=== PATIENT | female | born 1955 | race Hispanic/Latino ===

== ENCOUNTER 2017-09-14 11:18 | Emergency (ER) | payer BC ==
[2017-09-14] MEDS ORDERED: ALBUTEROL 2.5 MG/3 ML NEB SOL ONE ×2 (13:21→15:32)
[2017-09-14] MEDS ORDERED: IPRATROPIUM BROM 0.5MG/2.5ML ONE ×2 (13:22→15:32)
--- NOTE | 2017-09-14 14:48 | RAD REPORT ---
EXAM DESCRIPTION: RAD - Chest Pa And Lat (2 Views) - 09/14/2017 2:34 pm CLINICAL HISTORY: Cough and congestion COMPARISON: May 2010 TECHNIQUE: PA and lateral views of the chest were obtained. FINDINGS: The lungs are normal volume. Patient has an underlying chronic interstitial lung pattern. This is not substantially different from the prior study when adjusting for technique differences. No focal mass or consolidation. No failure finding. Heart size is normal and central vasculature is within normal limits. No pleural effusion or pneumot horax seen. No acute bone finding. Moderate thoracolumbar scoliotic curvature present. No aortic abn ormality. IMPRESSION: Chronic interstitial lung disease not substantially different from comparison. No acute findings seen.
[2017-09-14 15:19] LABS: Urine Blood 1+ (NEG); Urine Glucose NEGATIVE (NEG); Urine Protein NEGATIVE (NEG); Urine Specific Gravity 1.015 (1.005-1.030); Urine pH 5.5 (5.0-7.0)
--- NOTE | 2017-09-14 15:23 | ER ---
Nurse's Notes [facility] Name: Alaina Hernandez Age: 61 yrs Sex: Female : 1955 Arrival Date: 09/14/2017 Time: 11:37 Bed 17 Private MD: Diagnosis: Bronchitis, not specified as acute or chronic Presentation: 09/14 11:42 Presenting complaint: Patient states: headache, cough, congestion x 8 days. Denies ss fever. Transition of care: patient was not received from another setting of care. Onset of symptoms was September 06, 2017. Care prior to arrival: None. 11:42 Method Of Arrival: Ambulatory ss 11:42 Acuity: GABRIELLE 3 ss Historical: - Allergies: 11:43 Aspirin; ss 11:43 Iodine; ss 11:43 shrimp, peanuts,; ss - PMHx: 11:43 GERD; prolapsed uterus; ss - PSHx: 11:43 Cholecystectomy; lipoma removed from neck; ss - Immunization history:: Flu vaccine is not up to date. - Social history:: Smoking status: Patient/guardian denies using tobacco. Screenin:00 Abuse screen: Denies threats or abuse. Nutritional screening: No deficits noted. em Tuberculosis screening: No symptoms or risk factors identified. Fall Risk None identified. Assessment: 13:00 General: Appears in no apparent distress. uncomfortable, Behavior is calm, cooperative. em General: Reports chills for 2-3 days, fever for 2-3 days. Pain: Denies pain. Neuro: Level of Consciousness is awake, alert, obeys commands, Oriented to person, place, time, situation, Reports headache after coughing. Cardiovascular: Denies chest pain, Heart tones S1 S2 present Capillary refill < 3 seconds. Respiratory: Reports pain with cough pain with respiration Airway is patent Respiratory effort is even, unlabored, Respiratory pattern is regular, symmetrical, Sputum is green Breath sounds with wheezes in left posterior upper lobe, right posterior upper lobe, left posterior lower lobe and right posterior lower lobe Onset: The symptoms/episode began/occurred 8 days ago. GI: Abdomen is round non-distended. : Reports urinary frequency, since 8 days ago. EENT: No signs and/or symptoms were reported regarding the EENT system. Derm: Skin is intact, Skin is pink, warm \\T\\ dry. Musculoskeletal: Range of motion: intact in all extremities. 13:30 General: The previous assessment is accurate, call light remains within reach. . ss 14:00 Reassessment: Patient appears in no apparent distress at this time. Patient and/or em family updated on plan of care and expected duration. Pain level reassessed. Patient is alert, oriented x 3, equal unlabored respirations, skin warm/dry/pink. 14:20 Respiratory: Reports pain with cough Breath sounds with wheezes in left posterior lower em lobe and right posterior lower lobe. 15:10 Reassessment: Patient appears in no apparent distress at this time. Patient and/or em family updated on plan of care and expected duration. Pain level reassessed. Patient is alert, oriented x 3, equal unlabored respirations, skin warm/dry/pink. pt c/o headache after coughing, states, "I feel like my head is going to pop." RAUL Huggins notified, new orders received. 15:55 Reassessment: Patient and/or family updated on plan of care and expected duration. Pain em level reassessed. Patient is alert, oriented x 3, equal unlabored respirations, skin warm/dry/pink. Patient states feeling better. Patient states symptoms have improved. Vital Signs: 11:43 BP 135 / 77; Pulse 72; Resp 16; Temp 98.5(O); Pulse Ox 98% on R/A; Weight 63.5 kg; ss Height 5 ft. 2 in. (157.48 cm); Pain 0/10; 13:00 BP 144 / 79; Pulse 81; Resp 16; Pulse Ox 100% on R/A; Pain 0/10; em 13:50 BP 133 / 70; Pulse 90; Resp 18; Pulse Ox 100% on R/A; em 15:10 BP 127 / 83; Pulse 80; Resp 20; Pulse Ox 99% on R/A; Pain 4/10; em 15:55 BP 145 / 82; Pulse 81; Resp 18; Pulse Ox 99% on R/A; Pain 0/10; em 11:43 Body Mass Index 25.61 (63.50 kg, 157.48 cm) ED Course: 11:37 Patient arrived in ED. as 11:43 Triage completed. ss 11:43 Arm band placed on right wrist. ss 12:47 Bhavna Estrada, NATHALIA-C is PHCP. kb 12:47 Anand oTdd MD is Attending Physician. kb 13:00 Patient has correct armband on for positive identification. Bed in low position. Side em rails up X2. 13:00 No provider procedures requiring assistance completed. em 13:01 Hussein Cooney LVN is Primary Nurse. em 14:32 Chest Pa And Lat (2 Views) XRAY In Process Unspecified. EDMS 16:03 Patient did not have IV access during this emergency room visit. em Administered Medications: 13:10 Drug: DuoNeb (3:1) (2.5 mg - 0.5 mg) 3 ml Route: Nebulizer; em 13:50 Follow up: Response: No adverse reaction; Wheezing diminished em 15:19 Drug: DuoNeb (3:1) (2.5 mg - 0.5 mg) 3 ml Route: Nebulizer; em 15:55 Follow up: Response: No adverse reaction em 15:19 Drug: Tylenol 1000 mg Route: PO; em 15:55 Follow up: Response: No adverse reaction em Outcome: 15:22 Discharge ordered by MD. kb 16:02 Discharged to home ambulatory. em 16:02 Condition: good 16:02 Discharge instructions given to patient, Instructed on discharge instructions, follow up and referral plans. medication usage, Demonstrated understanding of instructions, follow-up care, medications, Prescriptions given X 2. 16:05 Patient left the ED. em Signatures: Dispatcher [employer] EDSC Bhavna Estrada, SALT CUTTER-C SALT CUTTER-Hussein Jensen LVN LVN em Raquel Rizzo Shelby, RN RN ss Corrections: (The following items were deleted from the chart) 13:22 13:00 Neuro: Level of Consciousness is awake, alert, obeys commands, Oriented to em person, place, time, situation, em 15:21 13:00 Respiratory: Airway is patent Respiratory effort is even, unlabored, Respiratory em pattern is regular, symmetrical, Sputum is green Onset: The symptoms/episode began/occurred 8 days ago, em
--- NOTE | 2017-09-14 15:23 | EDPHYS ---
Physician Documentation [facility] Name: Alaina Hernandez Age: 61 yrs Sex: Female : 1955 Arrival Date: 09/14/2017 Time: 11:37 Bed 17 Private MD: ED Physician Anand Todd HPI: 09/14 13:36 This 61 yrs old Female presents to ER via Ambulatory with complaints of kb Headache, Fever, Ear Pain. 13:36 The patient or guardian reports cough, that is intermittent, described as moderate, kb with no sputum. Onset: The symptoms/episode began/occurred 8 day(s) ago. Severity of symptoms: At their worst the symptoms were moderate, in the emergency department the symptoms are unchanged. Modifying factors: The symptoms are alleviated by nothing, the symptoms are aggravated by nothing. Associated signs and symptoms: Pertinent positives: earache, rhinorrhea, congestion. The patient has not experienced similar symptoms in the past. The patient has not recently seen a physician. Historical: - Allergies: 11:43 Aspirin; ss 11:43 Iodine; ss 11:43 shrimp, peanuts,; ss - PMHx: 11:43 GERD; prolapsed uterus; ss - PSHx: 11:43 Cholecystectomy; lipoma removed from neck; ss - Immunization history:: Flu vaccine is not up to date. - Social history:: Smoking status: Patient/guardian denies using tobacco. ROS: 13:36 Constitutional: Negative for fever, chills, and weight loss, Cardiovascular: Negative kb for chest pain, palpitations, and edema, Abdomen/GI: Negative for abdominal pain, nausea, vomiting, diarrhea, and constipation, Back: Negative for injury and pain, : Negative for injury, bleeding, discharge, and swelling, MS/Extremity: Negative for injury and deformity, Skin: Negative for injury, rash, and discoloration, Neuro: Negative for headache, weakness, numbness, tingling, and seizure. 13:36 ENT: Positive for rhinorrhea, sinus congestion. 13:36 Respiratory: Positive for cough, Negative for dyspnea on exertion, hemoptysis, orthopnea, pleurisy, shortness of breath, sputum production, wheezing. Exam: 13:36 Constitutional: This is a well developed, well nourished patient who is awake, alert, kb and in no acute distress. Head/Face: Normocephalic, atraumatic. Neck: Trachea midline, no thyromegaly or masses palpated, and no cervical lymphadenopathy. Supple, full range of motion without nuchal rigidity, or vertebral point tenderness. No Meningismus. Chest/axilla: Normal chest wall appearance and motion. Nontender with no deformity. No lesions are appreciated. Cardiovascular: Regular rate and rhythm with a normal S1 and S2. No gallops, murmurs, or rubs. Normal PMI, no JVD. No pulse deficits. Abdomen/GI: Soft, non-tender, with normal bowel sounds. No distension or tympany. No guarding or rebound. No evidence of tenderness throughout. Skin: Warm, dry with normal turgor. Normal color with no rashes, no lesions, and no evidence of cellulitis. MS/ Extremity: Pulses equal, no cyanosis. Neurovascular intact. Full, normal range of motion. Neuro: Awake and alert, GCS 15, oriented to person, place, time, and situation. Cranial nerves II-XII grossly intact. Motor strength 5/5 in all extremities. Sensory grossly intact. Cerebellar exam normal. Normal gait. 13:36 Respiratory: the patient does not display signs of respiratory distress, Respirations: normal, Breath sounds: rhonchi, that are moderate, are scattered, wheezing: expiratory that is moderate, is heard diffusely. 15:23 Respiratory: the patient does not display signs of respiratory distress, Respirations: kb normal, Breath sounds: are clear throughout. Vital Signs: 11:43 BP 135 / 77; Pulse 72; Resp 16; Temp 98.5(O); Pulse Ox 98% on R/A; Weight 63.5 kg; ss Height 5 ft. 2 in. (157.48 cm); Pain 0/10; 13:00 BP 144 / 79; Pulse 81; Resp 16; Pulse Ox 100% on R/A; Pain 0/10; em 13:50 BP 133 / 70; Pulse 90; Resp 18; Pulse Ox 100% on R/A; em 15:10 BP 127 / 83; Pulse 80; Resp 20; Pulse Ox 99% on R/A; Pain 4/10; em 15:55 BP 145 / 82; Pulse 81; Resp 18; Pulse Ox 99% on R/A; Pain 0/10; em 11:43 Body Mass Index 25.61 (63.50 kg, 157.48 cm) ss MDM: 12:47 Patient medically screened. kb 13:36 Data reviewed: vital signs, nurses notes. Data interpreted: Pulse oximetry: on room air kb is 100 %. Interpretation: normal. Counseling: I had a detailed discussion with the patient and/or guardian regarding: the historical points, exam findings, and any diagnostic results supporting the discharge/admit diagnosis, lab results, radiology results, the need for outpatient follow up, a family practitioner, to return to the emergency department if symptoms worsen or persist or if there are any questions or concerns that arise at home. 09/14 12:53 Order name: Flu; Complete Time: 13:47 kb 09/14 14:53 Order name: Urine Dipstick--Ancillary (enter results); Complete Time: 15:22 bd 09/14 12:53 Order name: Chest Pa And Lat (2 Views) XRAY; Complete Time: 14:52 kb 09/14 14:53 Order name: Urine --Ancillary (enter results); Complete Time: 15:22 bd Administered Medications: 13:10 Drug: DuoNeb (3:1) (2.5 mg - 0.5 mg) 3 ml Route: Nebulizer; em 13:50 Follow up: Response: No adverse reaction; Wheezing diminished em 15:19 Drug: DuoNeb (3:1) (2.5 mg - 0.5 mg) 3 ml Route: Nebulizer; em 15:55 Follow up: Response: No adverse reaction em 15:19 Drug: Tylenol 1000 mg Route: PO; em 15:55 Follow up: Response: No adverse reaction em Disposition: 09/14/17 15:22 Discharged to Home. Impression: Bronchitis, not specified as acute or chronic. - Condition is Stable. - Discharge Instructions: Acute Bronchitis, [id number]. - Prescriptions for Tessalon Perles 100 mg Oral Capsule - take 1 capsule by ORAL route every 8 hours As needed; 15 capsule. Albuterol Sulfate 90 mcg/actuation - inhale 1-2 puff by INHALATION route every 4-6 hours; 1 Inhaler. - Medication Reconciliation Form, Thank You Letter, Antibiotic Education, Prescription Opioid Use form. - Follow up: Emergency Department; When: As needed; Reason: Worsening of condition. Follow up: Private Physician; When: 2 - 3 days; Reason: Recheck today's complaints, Continuance of care, Re-evaluation by your physician. Addendum: 09/16/2017 06:14 Co-signature as Attending Physician, Anand Todd MD. g s Signatures: Dispatcher [employer] Bhavna Diaz, SOLE TRIMMER-C SOLE TRIMMER-Ckb Hussein Cooney, RETAIL SOLAR ADVISOR RETAIL SOLAR ADVISOR Luanne Navarro, Anand Kunz RN, MD MD
[2017-09-14] MEDS ORDERED: ACETAMINOPHEN 500 MG TAB ONE (15:32)
== END 2017-09-14 16:05 | disposition home or self-care (01) ==
LOC: ER 11:18
DX: J40 Bronchitis, not specified as acute or chronic (principal); Z88.8 Allergy status to other drugs, medicaments and biological substances; Z88.6 Allergy status to analgesic agent; Z91.010 Allergy to peanuts; Z91.013 Allergy to seafood
CPT/HCPCS: 71046; 81003; 81025; 87804; 94640; 99284

== ENCOUNTER 2022-12-16 09:26 | Emergency (ER) | payer OTHER ==
--- OUTSIDE RECORDS SUMMARY | 2022-12-16 09:31 | XMS REPORT | Continuity of Care Document ---
:1955 Author Organization [facility] t Address [address] [place] [address] [place] [id number] Care Team Providers Name Role Phone MEGAN_Sarwat Attending Clinician Unavailable Ev Phillips Attending Clinician Unavailable Ev Phillips Attending Clinician [phone] Della Ritchie RN Attending Clinician Unavailable Jeannette Cardoza Attending Clinician JEANNETTE ROBLES Attending Clinician Unavailable Doctor Unassigned, [place] Attending Clinician Unavailable Ciara Pederson MD Attending Clinician Thierry Garcia MD Attending Clinician MEGAN_Sarwat Admitting Clinician Unavailable Ev Phillips Admitting Clinician Unavailable Payers Payer Name Policy Type Policy Number Effective Date Expiration Date Cyril llanos [place] [id number] [place] - [place] (MEDICARE REPLACEMENT/ADVANTA GE - HMO) [employer] (MEDICARE [id number] REPLACEMENT HMO) [facility] [employer] [id number] INSURANCE [employer] [facility] [id number] 2020 00:00:00 Problems Condition Condition Condition Status Onset Resolution Last Treating Co mments Source Name Details Category Date Date Treatment Clinician Date Body mass Body Mass Problem Active Khalida via index 30+ Index 30+ 3-25 Medi verenice - obesity - Obesity 00:00: 00 Prolapse Prolapse Problem Active [facility] of female of Female [facility] genital Genital organs Organs Atrophic Atrophic Problem Active [facility] vaginitis Vaginitis [facility] Urinary Urinary Problem Active [facility] incontinen Incontinen Me dical ce ce No known No known Disease Unive rs active active ity of problems problems [facility] Allergies, Adverse Reactions, Alerts Allergy Allergy Status Severity Reaction(s) Onset Inactive Treating Comm ents Source Name Type Date Date Clinician iodine DA Active U ANAPHALAXIS 2021-06 [facility] [place] aspirin DA Active U ANAPHYLAXIS 2021-06 [facility] [place] IODINE DRUG Active Anaphylaxis Unive rs INGREDI 2-05 ity of 00:00: [place] 00 [facility] Iodine Propensi Active Anaphylaxis Uni vers ty to 2-05 ity of adverse 00:00: [place] reaction 00 Medical s Branch ANIMAL DRUG Active Swelling 2017-06 Univers DANDER INGREDI 0-28 ity of 00:00: [place] 00 [facility] ASPIRIN DRUG Active Swelling 2017-06 Univers INGREDI 0-28 ity of 00:00: [place] 00 [facility] CHICKEN DRUG Active Anaphylaxis 2017-06 Univ ers DERIVED INGREDI 0-28 ity of 00:00: [place] 00 [facility] DEONDRE DRUG Active Anaphylaxis 2017-06 Unive rs INGREDI 0-28 ity of 00:00: [place] 00 [facility] PEANUT DRUG Active Anaphylaxis 2017-06 Unive rs INGREDI 0-28 ity of 00:00: [place] 00 [facility] SHELLFIS DRUG Active Anaphylaxis 2017-06 Uni vers H INGREDI 0-28 ity of DERIVED 00:00: [place] 00 [facility] Animal Propensi Active Swelling 2017-06 Univer s Dander ty to 0-28 ity of adverse 00:00: [place] reaction 00 Medical s Branch Aspirin Propensi Active Swelling 2017-06 Unive rs ty to 0-28 ity of adverse 00:00: [place] reaction 00 Medical s Branch Chicken Propensi Active Anaphylaxis 2017-06 Un tara Derived ty to 0-28 ity of adverse 00:00: [place] reaction 00 Medical s Branch Deondre Propensi Active Anaphylaxis 2017-06 Uni vers ty to 0-28 ity of adverse 00:00: [place] reaction 00 Medical s Branch Peanut Propensi Active Anaphylaxis 2017-06 Uni vers ty to 0-28 ity of adverse 00:00: [place] reaction Medical s Branch Shellfis Propensi Active Anaphylaxis 2017-06 U nivers h ty to 0-28 ity of Derived adverse 00:00: [place] reaction 00 Medical s Branch iodine DA Active U UNKNOWN [facility] 14 Woman's 00:00: [facility] [place] aspirin DA Active U UNKNOWN [facility] 14 [facility] 00:00: [facility] [place] Tylenol- Allergy Active [place] [facility] codeine to Medical #3 substanc e Aspirin Allergy Active Angioedema [facility] to Medical substanc e Social History Social Habit Start Date Stop Date Quantity Comments Source Exposure to SARS-CoV-2 Not sure [facility] [place] [facility]igned At [facility] Smoking Status Start Date Stop Date Source Never Smoker [facility] Medications Ordered Filled Start Stop Current Ordering Indication Dosage Frequency Signature Comments Components Source Medication Medication Date Date Medication? Clinician (SIG) Name Name butalbital- 2019-06 2020- No 1{tbl} 1 tablet, [facility] acetaminoph 0-18 10-18 Oral, ONCE i ty of en-caff 19:45: 18:40 NOW, 1 [place] (ESGIC) 00 :00 dose, [facility] 50-325-40 04/05/20 Branch mg tablet 1 at 1445, tablet ABHILASH dexamethaso 2019-06 2020- No 10mg 10 mg, IV Univers ne 0-18 10-18 Push, ity of (DECADRON 18:00: 17:15 ONCE, 1 [place] PHOSPHATE) 00 :00 dose, [place] [facility] verenice injection 04/05/20 Branch 10 mg at 1300, STAT metoclopram 2019-06 2020- No 10mg 10 mg, Uni vers ming HCl 0-18 10-18 Slow IV ity of (REGLAN) 18:00: 17:14 Push, [place] injection 00 :00 ONCE, 1 Medical 10 mg dose, [place] [facility] 04/05/20 at 1300, ABHILASH ketorolac 2019-06 2020- No 30mg 30 mg, Unive rs (TORADOL) 0-18 10-18 Slow IV ity of injection 18:00: 17:15 Push, [place] 30 mg 00 :00 ONCE, 1 Medical dose, [facility] 04/05/20 at 1300, ABHILASH
[facility] member approving Restricted medication : JEANNETTE ROBLES meclizine 2019-06- No 50mg 50 mg, Unive rs (TRAVEL-EAS 0-18 10-18 Oral, ity of E 18:00: 17:14 ONCE, 1 [place] (MECLIZINE) 00 :00 dose, [facility] ical ) tablet 50 04/05/20 Bran ch mg at 1300, ABHILASH NaCl 0.9% 2019-06- No 1000mL at 999 Uni vers (NS) bolus 0-18 10-18 mL/hr, ity of infusion 17:00: 18:58 1,000 mL, Adalberto as 1,000 mL 00 :00 IV Medical Infusion, Branch ONCE, 1 dose, 04/05/20 at 1200, ABHILASH butalbital- 2019-06 Yes [id number] 1{tbl} Take 1 Univers acetaminoph 0-18 tablet by ity of en-caff 00:00: mouth [place] 50-325-40 00 every 6 Medical mg tablet (six) Branch hours as needed for Pain (scale 7-10). butalbital- 2019-06 Yes [id number] 1{tbl} Take 1 Univers acetaminoph 0-18 tablet by ity of en-caff 00:00: mouth [place] 50-325-40 00 every 6 Medical mg tablet (six) Branch hours as needed for Pain (scale 7-10). Nitrofurant 2019-06- No [id number] 100mg Take 1 Univers oin&Nit. 0-18 10-26 capsule by ity of Macrocryst 00:00: 04:59 mouth 2 Adalberto as 100 mg 00 :00 (two) Medical capsule times Branch daily for 7 days. Nitrofurant 2019-06 2020- No [id number] 100mg Take 1 Univers oin&Nit. 0-18 10-26 capsule by ity of Macrocryst 00:00: 04:59 mouth 2 Adalberto as 100 mg 00 :00 (two) Medical capsule times Branch daily for 7 days. ketorolac 2019- No 30mg 30 mg, Unive rs (TORADOL) 2-06 02-06 Slow IV ity of injection 02:15: 01:14 Push, [place] 30 mg 00 :00 ONCE, 1 Medical dose, Wed Branch 07/24/19 at 2015, ABHILASH
[facility] member approving Restricted medication : CIARA PEDERSON LORazepam 2020-0 Yes 1mg Take 1 mg Uni vers (ATIVAN) 1 2-06 by mouth ity o f mg tablet 01:50: at [place] bedtime. Medical Branch ciprofloxac 2020-0 Yes 500mg Take 500 U nivers in HCl 500 2-06 mg by ity of mg tablet 01:50: mouth [place] daily. Medical Branch LORazepam 2020-0 Yes 1mg Take 1 mg Uni vers (ATIVAN) 1 2-06 by mouth ity o f mg tablet 01:50: at [place] bedtime. Medical Branch ciprofloxac 2020-0 Yes 500mg Take 500 U nivers in HCl 500 2-06 mg by ity of mg tablet 01:50: mouth daily. Medical Branch LORazepam 2020-0 Yes 1mg Take 1 mg Uni vers (ATIVAN) 1 2-06 by mouth ity o f mg tablet 01:50: at [place] bedtime. Medical Branch ciprofloxac 2020-0 Yes 500mg Take 500 U nivers in HCl 500 2-06 mg by ity of mg tablet 01:50: mouth daily. Medical Branch LORazepam 2020-0 Yes 1mg Take 1 mg Uni vers (ATIVAN) 1 2-06 by mouth ity o f mg tablet 01:50: at [place] 09 bedtime. Medical Branch ciprofloxac 2020-0 Yes 500mg Take 500 U nivers in HCl 500 2-06 mg by ity of mg tablet 01:50: mouth [place] 09 daily. Medical Branch butalbital- 2020-0 Yes [id number] 1{tbl} Take 1 Univers acetaminoph 2-05 tablet by ity of en-caff 00:00: mouth [place] 50-325-40 00 every 4 Medical mg tablet (four) Branch hours as needed (headache) . busPIRone 2020-0 Yes [id number] 10mg Take 1 Un tara 10 mg 2-05 tablet by ity of tablet 00:00: mouth 2 [place] 00 (two) Medical times Branch daily. butalbital- 2020-0 Yes [id number] 1{tbl} Take 1 Univers acetaminoph 2-05 tablet by ity of en-caff 00:00: mouth [place] 50-325-40 00 every 4 Medical mg tablet (four) Branch hours as needed (headache) . busPIRone 2020-0 Yes [id number] 10mg Take 1 Un tara 10 mg 2-05 tablet by ity of tablet 00:00: mouth 2 [place] 00 (two) Medical times Branch daily. butalbital- 2020-0 Yes [id number] 1{tbl} Take 1 Univers acetaminoph 2-05 tablet by ity of en-caff 00:00: mouth [place] 50-325-40 00 every 4 Medical mg tablet (four) Branch hours as needed (headache) . busPIRone 2020-0 Yes [id number] 10mg Take 1 Un tara 10 mg 2-05 tablet by ity of tablet 00:00: mouth 2 [place] 00 (two) Medical times Branch daily. butalbital- 2020-0 Yes [id number] 1{tbl} Take 1 Univers acetaminoph 2-05 tablet by ity of en-caff 00:00: mouth [place] 50-325-40 00 every 4 Medical mg tablet (four) Branch hours as needed (headache) . busPIRone 2020-0 Yes [id number] 10mg Take 1 Un tara 10 mg 2-05 tablet by ity of tablet 00:00: mouth 2 [place] 00 (two) Medical times Branch daily. hyoscyamine 2017- Yes .125mg Take 1 Un tara 0.125 mg 0-28 tablet by ity of tablet 00:00: mouth [place] 00 every 4 Medical (four) Branch hours as needed for Pain (scale 7-10). ondansetron 2017- Yes 4mg Take 1 Univ ers 4 mg tablet 0-28 tablet by ity of 00:00: mouth [place] 00 every 8 Medical (eight) Branch hours as needed for Nausea and Vomiting (N/V). hyoscyamine 2018- Yes .125mg Take 1 Un tara 0.125 mg 0-28 tablet by ity of tablet 00:00: mouth [place] 00 every 4 Medical (four) Branch hours as needed for Pain (scale 7-10). ondansetron 2017- Yes 4mg Take 1 Univ ers 4 mg tablet 0-28 tablet by ity of 00:00: mouth [place] 00 every 8 Medical (eight) Branch hours as needed for Nausea and Vomiting (N/V). hyoscyamine 2017- Yes .125mg Take 1 Un tara 0.125 mg 0-28 tablet by ity of tablet 00:00: mouth [place] 00 every 4 Medical (four) Branch hours as needed for Pain (scale 7-10). ondansetron 2017-06 Yes 4mg Take 1 Univ ers 4 mg tablet 0-28 tablet by ity of 00:00: mouth [place] 00 every 8 Medical (eight) Branch hours as needed for Nausea and Vomiting (N/V). hyoscyamine 2017-06 Yes .125mg Take 1 Un tara 0.125 mg 0-28 tablet by ity of tablet 00:00: mouth [place] 00 every 4 Medical (four) Branch hours as needed for Pain (scale 7-10). ondansetron 2017-06 Yes 4mg Take 1 Univ ers 4 mg tablet 0-28 tablet by ity of 00:00: mouth [place] 00 every 8 Medical (eight) Branch hours as needed for Nausea and Vomiting (N/V). hyoscyamine 2017-06 Yes .125mg Take 1 Un tara 0.125 mg 0-28 tablet by ity of tablet 00:00: mouth [place] 00 every 4 Medical (four) Branch hours as needed for Pain (scale 7-10). ondansetron 2017-06 Yes 4mg Take 1 Univ ers 4 mg tablet 0-28 tablet by ity of 00:00: mouth [place] 00 every 8 Medical (eight) Branch hours as needed for Nausea and Vomiting (N/V). estradiol estradiol No estradiol [facility] 0.01% (0.1 0.01% (0.1 0.01% (0.1 Medical mg/gram) mg/gram) mg/gram) vaginal vaginal vaginal cream 1 g cream 1 g cream 1 g per vagina per vagina per vagina nightly for nightly for nightly 2 weeks, 2 weeks, for 2 then 1 g then 1 g weeks, per vagina per vagina then 1 g at bedtime at bedtime per vagina twice twice at bedtime weekly weekly twice weekly lorazepam 2 lorazepam 2 No lorazepam [facility] mg tablet mg tablet 2 mg Medic al TAKE 1 TAKE 1 tablet TABLET BY TABLET BY TAKE 1 MOUTH EVERY MOUTH EVERY TABLET BY DAY DAY MOUTH NEEDED FOR NEEDED FOR EVERY DAY ANXIETY ANXIETY NEEDED FOR ANXIETY nitrofurant nitrofurant No nitrofuran [facility] oin oin toin Medical monohydrate monohydrate monohydrat /macrocryst /macrocryst e/macrocry als 100 mg als 100 mg stals 100 capsule capsule mg capsule Take 1 Take 1 Take 1 capsule(s) capsule(s) capsule(s) after each after each after each visit visit visit propranolol propranolol No propranolo [facility] 10 mg 10 mg l 10 mg Medical tablet TAKE tablet TAKE tablet 1 TABLET BY 1 TABLET BY TAKE 1 MOUTH TWICE MOUTH TWICE TABLET BY DAILY DAILY MOUTH TWICE DAILY acetaminoph acetaminoph No acetaminop [facility] en 300 en 300 hen 300 Medical mg-codeine mg-codeine mg-codeine 30 mg 30 mg 30 mg tablet TAKE tablet TAKE tablet 1 TABLET BY 1 TABLET BY TAKE 1 MOUTH EVERY MOUTH EVERY TABLET BY 4 HOURS 4 HOURS MOUTH NEEDED NEEDED EVERY 4 HOURS NEEDED estradiol estradiol No estradiol [facility] 0.01% (0.1 0.01% (0.1 0.01% (0.1 Medical mg/gram) mg/gram) mg/gram) vaginal vaginal vaginal cream 1 g cream 1 g cream 1 g per vagina per vagina per vagina nightly for nightly for nightly 2 weeks, 2 weeks, for 2 then 1 g then 1 g weeks, per vagina per vagina then 1 g at bedtime at bedtime per vagina twice twice at bedtime weekly weekly twice weekly lorazepam 2 lorazepam 2 No lorazepam [facility] mg tablet mg tablet 2 mg Medic al TAKE 1 TAKE 1 tablet TABLET BY TABLET BY TAKE 1 MOUTH EVERY MOUTH EVERY TABLET BY DAY DAY MOUTH NEEDED FOR NEEDED FOR EVERY DAY ANXIETY ANXIETY NEEDED FOR ANXIETY propranolol propranolol No propranolo [facility] 10 mg 10 mg l 10 mg Medical tablet TAKE tablet TAKE tablet 1 TABLET BY 1 TABLET BY TAKE 1 MOUTH TWICE MOUTH TWICE TABLET BY DAILY DAILY MOUTH TWICE DAILY estradiol estradiol No estradiol [facility] 0.01% (0.1 0.01% (0.1 0.01% (0.1 Medical mg/gram) mg/gram) mg/gram) vaginal vaginal vaginal cream 1 g cream 1 g cream 1 g per vagina per vagina per vagina nightly for nightly for nightly 2 weeks, 2 weeks, for 2 then 1 g then 1 g weeks, per vagina per vagina then 1 g at bedtime at bedtime per vagina twice twice at bedtime weekly weekly twice weekly ketorolac ketorolac No ketorolac [facility] 10 mg 10 mg 10 mg Medical tablet TAKE tablet TAKE tablet 1 TABLET BY 1 TABLET BY TAKE 1 MOUTH THREE MOUTH THREE TABLET BY TIMES DAILY TIMES DAILY MOUTH NEEDED NEEDED THREE FOR PAIN FOR PAIN TIMES DAILY NEEDED FOR PAIN lorazepam 2 lorazepam 2 No lorazepam [facility] mg tablet mg tablet 2 mg Medic al TAKE 1 TAKE 1 tablet TABLET BY TABLET BY TAKE 1 MOUTH EVERY MOUTH EVERY TABLET BY DAY DAY MOUTH NEEDED FOR NEEDED FOR EVERY DAY ANXIETY ANXIETY NEEDED FOR ANXIETY mometasone mometasone No mometasone [facility] 0.1 % 0.1 % 0.1 % Medical topical topical topical ointment ointment ointment APPLY TO APPLY TO APPLY TO AFFECTED AFFECTED AFFECTED RIGHT EYE RIGHT EYE RIGHT EYE LID EVERY LID EVERY LID EVERY NIGHT AT NIGHT AT NIGHT AT BEDTIME FOR BEDTIME FOR BEDTIME 10 DAYS 10 DAYS FOR 10 DAYS prednisone prednisone No prednisone [facility] 20 mg 20 mg 20 mg Medical tablet TAKE tablet TAKE tablet 3 TABLETS 3 TABLETS TAKE 3 BY MOUTH BY MOUTH TABLETS BY EVERY DAY EVERY DAY MOUTH FOR 3 DAYS FOR 3 DAYS EVERY DAY THEN TAKE 2 THEN TAKE 2 FOR 3 DAYS TABLETS BY TABLETS BY THEN TAKE MOUTH EVERY MOUTH EVERY 2 TABLETS DAY FOR 3 DAY FOR 3 BY MOUTH DAYS THEN DAYS THEN EVERY DAY TAKE 1 TAKE 1 FOR 3 DAYS TABLET BY TABLET BY THEN TAKE MOUTH EVERY MOUTH EVERY 1 TABLET DAY FOR 3 DAY FOR 3 BY MOUTH DAYS DAYS EVERY DAY FOR 3 DAYS propranolol propranolol No propranolo [facility] 10 mg 10 mg l 10 mg Medical tablet TAKE tablet TAKE tablet 1 TABLET BY 1 TABLET BY TAKE 1 MOUTH TWICE MOUTH TWICE TABLET BY DAILY DAILY MOUTH TWICE DAILY estradiol estradiol No estradiol [facility] 0.01% (0.1 0.01% (0.1 0.01% (0.1 Medical mg/gram) mg/gram) mg/gram) vaginal vaginal vaginal cream 1 g cream 1 g cream 1 g per vagina per vagina per vagina nightly for nightly for nightly 2 weeks, 2 weeks, for 2 then 1 g then 1 g weeks, per vagina per vagina then 1 g at bedtime at bedtime per vagina twice twice at bedtime weekly weekly twice weekly lorazepam 2 lorazepam 2 No lorazepam [facility] mg tablet mg tablet 2 mg Medic al TAKE 1 TAKE 1 tablet TABLET BY TABLET BY TAKE 1 MOUTH EVERY MOUTH EVERY TABLET BY DAY DAY MOUTH NEEDED FOR NEEDED FOR EVERY DAY ANXIETY ANXIETY NEEDED FOR ANXIETY propranolol propranolol No propranolo [facility] 10 mg 10 mg l 10 mg Medical tablet TAKE tablet TAKE tablet 1 TABLET BY 1 TABLET BY TAKE 1 MOUTH TWICE MOUTH TWICE TABLET BY DAILY DAILY MOUTH TWICE DAILY acetaminoph acetaminoph No acetaminop [facility] en 300 en 300 hen 300 Medical mg-codeine mg-codeine mg-codeine 30 mg 30 mg 30 mg tablet TAKE tablet TAKE tablet 1 TABLET BY 1 TABLET BY TAKE 1 MOUTH EVERY MOUTH EVERY TABLET BY 4 HOURS 4 HOURS MOUTH NEEDED NEEDED EVERY 4 HOURS NEEDED estradiol estradiol No estradiol [facility] 0.01% (0.1 0.01% (0.1 0.01% (0.1 Medical mg/gram) mg/gram) mg/gram) vaginal vaginal vaginal cream 1 g cream 1 g cream 1 g per vagina per vagina per vagina nightly for nightly for nightly 2 weeks, 2 weeks, for 2 then 1 g then 1 g weeks, per vagina per vagina then 1 g at bedtime at bedtime per vagina twice twice at bedtime weekly weekly twice weekly lorazepam 2 lorazepam 2 No lorazepam [facility] mg tablet mg tablet 2 mg Medic al TAKE 1 TAKE 1 tablet TABLET BY TABLET BY TAKE 1 MOUTH EVERY MOUTH EVERY TABLET BY DAY DAY MOUTH NEEDED FOR NEEDED FOR EVERY DAY ANXIETY ANXIETY NEEDED FOR ANXIETY propranolol propranolol No propranolo [facility] 10 mg 10 mg l 10 mg Medical tablet TAKE tablet TAKE tablet 1 TABLET BY 1 TABLET BY TAKE 1 MOUTH TWICE MOUTH TWICE TABLET BY DAILY DAILY MOUTH TWICE DAILY Vital Signs Vital Name Observation Time Observation Value Comments Source BP Diastolic 2022-05-24 00:00:00 80 mm[Hg] [facility] Height 2022-05-24 00:00:00 62 [in_i] [facility] BMI (Body Mass 2022-05-24 00:00:00 24.1 kg/m2 [facility] Medical Index) BP Systolic 2022-05-24 00:00:00 119 mm[Hg] [facility] Body Weight 2022-05-24 00:00:00 132 [lb_av] [facility] Height 2022-04-11 00:00:00 62 [in_i] [facility] BMI (Body Mass 2022-04-11 00:00:00 24.1 kg/m2 [facility] Index) BP Systolic 2022-04-11 00:00:00 136 mm[Hg] [facility] Body Weight 2022-04-11 00:00:00 132 [lb_av] [facility] BP Diastolic 2022-04-11 00:00:00 77 mm[Hg] [facility] BP Diastolic 2022-03-22 00:00:00 78 mm[Hg] [facility] Height 2022-03-22 00:00:00 62 [in_i] [facility] BP Systolic 2022-03-22 00:00:00 135 mm[Hg] [facility] BP Diastolic 2022-03-11 00:00:00 82 mm[Hg] [facility] Height 2022-03-11 00:00:00 62 [in_i] [facility] BMI (Body Mass 2022-03-11 00:00:00 25.1 kg/m2 [facility] Medical Index) BP Systolic 2022-03-11 00:00:00 148 mm[Hg] [facility] Body Weight 2022-03-11 00:00:00 137 [lb_av] [facility] BP Diastolic 2021-09-10 00:00:00 68 mm[Hg] [facility] Height 2021-09-10 00:00:00 62 [in_i] [facility] BMI (Body Mass 2021-09-10 00:00:00 33.8 kg/m2 [facility] Medical Index) BP Systolic 2021-09-10 00:00:00 135 mm[Hg] [facility] Body Weight 2021-09-10 00:00:00 185 [lb_av] [facility] Systolic blood 2020-04-05 18:42:01 134 mm[Hg] Univer sity of pressure [facility] Diastolic blood 2020-04-05 18:42:01 69 mm[Hg] Unive rsity of pressure [facility] Heart rate 2020-04-05 18:42:01 78 /min Universi of [facility] Respiratory rate 2020-04-05 18:42:01 16 /[facility] Oxygen saturation in 2020-04-05 18:42:01 99 /min [facility] Arterial blood by [facility] Pulse oximetry Branch Body temperature 2020-04-05 16:29:17 36.61 [facility] [place] [facility] Body weight 2020-04-05 16:27:00 63.504 kg [facility] [place] [facility] BMI 2020-04-05 16:27:00 25.61 kg/m2 [facility] [place] [facility] Body height 2020-04-05 16:27:00 157.5 cm [facility] [place] [facility] Systolic blood 2020-04-05 18:42:01 134 mm[Hg] Univer sity of pressure [place] [facility] Diastolic blood 2020-04-05 18:42:01 69 mm[Hg] Unive rsity of pressure [place] [facility] Heart rate 2020-04-05 18:42:01 78 /min [facility] [place] [facility] Respiratory rate 2020-04-05 18:42:01 16 /min [facility] ers[facility] [place] [facility] Oxygen saturation in 2020-04-05 18:42:01 99 /min University of Arterial blood by [facility] Pulse oximetry Branch Body temperature 2020-04-05 16:29:17 36.61 [facility] [place] [facility] Body weight 2020-04-05 16:27:00 63.504 kg [facility] [place] [facility] BMI 2020-04-05 16:27:00 25.61 kg/m2 [facility] [place] [facility] Body height 2020-04-05 16:27:00 157.5 cm [facility] [place] [facility] Systolic blood 2019-07-25 01:00:00 122 mm[Hg] Univer sity of pressure [place] [facility] Diastolic blood 2019-07-25 01:00:00 71 mm[Hg] Unive rsity of pressure [place] [facility] Heart rate 2019-07-25 01:00:00 69 /min [facility] [place] [facility] Respiratory rate 2019-07-25 01:00:00 18 /min Univ [facility] [place] [facility] Oxygen saturation in 2019-07-25 01:00:00 96 /min University of Arterial blood by [facility] Pulse oximetry Branch Body temperature 2019-07-24 23:12:47 36.83 [facility] [place] [facility] Body height 2019-07-24 23:08:05 157.5 cm [facility] [place] [facility] Body weight 2019-07-24 23:08:05 63.05 kg [facility] BMI 2019-07-24 23:08:05 25.42 kg/m2 [facility] Systolic blood 2019-07-25 01:00:00 122 mm[Hg] Univer sity of pressure [facility] Diastolic blood 2019-07-25 01:00:00 71 mm[Hg] [facility] Heart rate 2019-07-25 01:00:00 69 /min [facility] Respiratory rate 2019-07-25 01:00:00 18 /min [facility] Oxygen saturation in 2019-07-25 01:00:00 96 /min [facility] Arterial blood by [facility] Pulse oximetry [place] Body temperature 2019-07-24 23:12:47 36.83 [facility] Body height 2019-07-24 23:08:05 157.5 cm [facility] Body weight 2019-07-24 23:08:05 63.05 kg [facility] BMI 2019-07-24 23:08:05 25.42 kg/m2 [facility] Procedures Procedure Date / Time Performing Clinician Source Performed Hysterectomy - Laparoscopy 2022-03-29 00:00:00 [facility] MAMMO, diagnostic, 2022-03-11 00:00:00 [facility] digital, bilateral US, transvaginal 2021-09-10 00:00:00 [facility] 2020-04-05 17:06[facility] 2020-04-05 17:06:00 Jeannette Robles [facility] ([id number]) (ALB,T.PRO,[facility] T,BU/BC,ALT,AST,ALK PHOS) BASIC METABOLIC PANEL (NA, 2020-04-05 17:06:00 [facility] K, CL, CO2, GLUCOSE, BUN, Medica l Branch CREATININE, CA) CBC WITH DIFF 2020-04-05 17:06:00 [facility] 2020-04-05 17:06:00 [facility] N-TERMINAL PRO-BNP 2020-04-05 17:06:00 Jeannette Robles [facility] EKG-12 LEAD 2020-04-05 16:48:42 Tabby Roblesanne [facility] NOTICE OF PRIVACY 2020-04-05 16:10:46 Doctor Unassigned, [facility] PRACTICES [facility] [place] CONSENT/REFUSAL FOR 2020-04-05 16:10:33 Doctor Adam, [facility] DIAGNOSIS AND TREATMENT [facility] [place] URINALYSIS 2019-07-25 01:02:00 Lia [facility] XR CHEST 2 VW 2019-07-25 00:37:[address] [facility] [address] ABDOMEN PELVIS WO 2019-07-25 00:32:34 Lia [place] [facility] CONTRAST [facility] LIPASE 2019-07-24 23:41:00 Lia [facility] TROPONIN I 2019-07-24 23:41:00 Lia [facility] HEPATIC FUNCTION PANEL 2019-07-24 23:41:[address] [facility] ([id number]) (ALB,T.PRO,BILI [facility] T,BU/BC,ALT,AST,ALK PHOS) BASIC METABOLIC PANEL (NA, 2019-07-24 23:41:00 [facility] [facility] K, CL, CO2, GLUCOSE, BUN, Medica l Branch CREATININE, CA) CBC WITH DIFFERENTIAL 2019-07-24 23:41:00 Ciara Pederson [facility] PROTHROMBIN TIME / INR 2019-07-24 23:41:00 Ciara Pederson [facility] ACTIVATED PARTIAL THRMPLAS 2019-07-24 23:41:00 Ciara Pederson [facility] JORDYN [facility] EKG-12 LEAD 2019-07-24 23:19:38 Lia [facility] NOTICE OF PRIVACY 2019-07-24 22:41:07 Doctor Thaisssigned, [facility] PRACTICES [facility] [place] CONSENT/REFUSAL FOR 2019-07-24 22:37:24 Doctor Adam, [facility] DI[facility] 1997-06-19 00:00:00 [facility] Chole[facility] 1981-06-19 00:00:00 [facility] Plan of Care Planned Activity Planned Date Details Comments Source Diagnostic Test 2022-05-24 00:00:00 culture, urine [code [facility] Pending = culture, urine] Diagnostic Test 2022-05-24 00:00:00 urinalysis, complete [facility] Pending [code = urinalysis, complete] Encounters Start End Encounter Admission Attending Care Care Encounter Source Date/Time Date/Time Type Type Clinicians Facility Department ID 2022-12-14 2022-12-14 Outpatient [facility] PRIV PRIV 527 3045-20 [facility] 00:00:00 00:00:00 _Cathey [id number] Medica l 2022-09-14 2022-09-14 Outpatient [facility] PRIV PRIV 527 3045-20 [facility] 00:00:00 00:00:00 _Cathey [id number] Medica l 2022-09-14 2022-09-14 Outpatient [facility] PRIV PRIV 527 3045-20 [facility] 00:00:00 00:00:00 _Cathey [id number] Medica l 2022-08-03 2022-08-03 Outpatient [facility] PRIV PRIV 527 3045-20 [facility] 00:00:00 00:00:00 _Cathey [id number] Medica l 2022-05-24 2022-05-24 Outpatient [facility] PRIV PRIV 527 3045-20 [facility] 00:00:00 00:00:00 _Cathey [id number] Medica l 2022-05-24 2022-05-24 [facility] [id number] [facility] 00:00:00 00:00:00 RAUL Can: [facility] - Ms dicjemma 7900 GC_HAWMAC Jose Roberto, _Jose Roberto [address], [place] [address] , Ph. [phone] 2022-05-23 2022-05-23 Outpatient [facility] PRIV PRIV 527 3045-20 [facility] 00:00:00 00:00:00 _Cathey [id number] Medica l 2022-04-26 2022-04-26 Outpatient [facility] PRIV PRIV 527 3045-20 [facility] 00:00:00 00:00:00 _Cathey [id number] Medica l 2022-04-11 2022-04-11 Outpatient [facility] PRIV PRIV 527 3045-20 [facility] 00:00:00 00:00:00 _Cathey [id number] Medica l 2022-04-11 2022-04-11 Ev [facility]00 [facility]00[facility]arn[facility] MD: Stephie _Jose Roberto Cid, Office* [address], [place] [address] , Ph. [phone] 2022-03-29 2022-03-30 Inpatient HARPER Phillips, [facility] MEDI.01 [id number] [facility] 07:32:00 11:42:00 Ev 39 [facility] 2022-03-22 2022-03-22 Outpatient [facility] PRIV PRIV 527 3045-20 [facility] 00:00:00 00:00:00 _Cathey [id number] Medica l 2022-03-22 2022-03-22 Ev [facility] 00:00:00 00:00:00 Rosalinda [facility] RYAN Parnell MD: Stephie _Jose Roberto [address], Office* [address], [place] [address] , Ph. [phone] 2022-03-21 2022-03-21 Outpatient [facility] PRIV PRIV 527 3045-20 [facility] 00:00:00 00:00:00 _Cathey [id number] Medica l 2022-03-17 2022-03-17 Outpatient [facility] PRIV PRIV 527 3045-20 [facility] 00:00:00 00:00:00 _Cathey [id number] Medica l 2022-03-11 2022-03-11 Outpatient [facility] PRIV PRIV 527 3045-20 [facility] 00:00:00 00:00:00 _Cathey [id number] Medica l 2022-03-11 2022-03-11 Ev [facility]:00[facility]00 00:00:00 [facility] YOLETTE ParnellPRJerald : [address], Office* [address], [place] [address] , Ph. [phone] 2022-03-09 2022-03-09 Outpatient [facility] PRIV PRIV 527 3045-20 [facility] 00:00:00 00:00:00 _Cathey [id number] Medica l 2022-02-02 2022-02-02 Outpatient [facility] PRIV PRIV 527 3045-20 [facility] 00:00:00 00:00:00 _Cathey [id number] Medica l 2022-01-12 2022-01-12 Outpatient [facility] PRIV PRIV 527 3045-20 [facility] 00:00:00 00:00:00 _Cathey [id number] Medica l 2021-12-16 2021-12-16 Outpatient [facility] PRIV PRIV 527 3045-20 [facility] 01:06:00 01:06:00 _Cathey [id number] Medica l 2021-11-16 2021-11-16 Outpatient [facility] PRIV PRIV 527 3045-20 [facility] 01:08:00 01:08:00 _Cathey [id number] Medica l 2021-10-07 2021-10-07 Outpatient [facility] PRIV PRIV 527 3045-20 [facility] 03:51:00 03:51:00 _Cathey [id number] Medica l 2021-09-14 2021-09-14 Outpatient [facility] PRIV PRIV 527 3045-20 [facility] 10:33:00 10:33:00 _Cathey [id number] Medica l 2021-09-10 2021-09-10 Outpatient [facility] PRIV PRIV 527 3045-20 [facility] 12:17:00 12:17:00 _Cathey [id number] Medica l 2021-09-10 2021-09-10 Ev [facility] 00:00:00 00:00:00 [facility] - Medic jemma Phillips GC_[facility] : [address] _Jose Roberto Cid, Office* [address], [place] [address] , Ph. [phone] 2021-09-102021-09-10 Outpatient Jacqueline, PRIV PRIV [id number] c-a 00:00:00 00:00:00 Ev [id number] Rosalinda [id number] 2021-09-09 2021-09-09 Outpatient _[facility] PRIV PRIV 527 3045-20 [facility] 12:00:00 12:00:00 _Cathey [id number] Medica l 2021-09-08 2021-09-08 Outpatient _[facility] PRIV PRIV 527 3045-20 [facility] 04:32:00 04:32:00 _Cathey [id number] Medica l 2020-04-06 2020-04-06 Letter ADAN Ritchie 1.2.840.114 [id number] Univers 00:00:00 00:00:00 (Out) Della PUENTE 350.1.13.10 it [facility] 4.2.7.2.686 [facility] [phone] [address] 2020-04-06 2020-04-06 Letter ADAN Ritchie 1.2.840.114 [id number] 00:00:00 00:00:00 (Out) Della PUENTE 350.1.13.10 [place] [address]..2.[facility] [phone] [facility] 2020-04-05 2020-04-05 Emergency Robles, [facility] 1.2.840.114 [id number] Univers 11:30:00 14:08:00 Jeannette Corona 350.1.13.10 i ty [facility] 4.2.7.2.686 [facility] [id number] [address] 2020-04-05 2020-04-05 Emergency Robles, [facility] 1.2.840.114 [id number] 11:30:00 14:08:00 Jeannette Corona 350.1.13.10 [place] [address] [place] [address] [phone] [facility] 2020-04-05 2020-04-05 Emergency X ROBLES, [facility] ERT [id number] Univers 11:12:00 11:12:00 JEANNETTE guevara [facility] 2020-04-05 2020-04-05 Jose Maria ARELLANO 1.2.840.114 [id number] Univers 00:00:00 00:00:00 Only Unassigned, CINDI 350.1.13.10 [facility] 4.2.7.2.686 Adalberto as [phone] [address] 2020-04-05 2020-04-05 Orders Doctor ARELLANO Stephanie.2.840.114 [id number] 00:00:00 00:00:00 Only Unassigned, CINDI 350.1.13.10 [facility] [id number] [facility] 2019-07-24 2019-07-24 Emergency Ciara Pederson [facility] 1.2.84 0.114 [id number] [facility] 16:59:05 19:53:00 Thierry Garcia 350.1.13.10 ity of [place] 4.2.7.2.686 [facility] [phone] [address] 2019-07-24 2019-07-24 Emergency Ciara Pederson [facility] 1.2.84 0.114 [id number] 16:59:05 19:53:00 Thierry Garcia 350.1.13.10 [place] 4.2.7.2.686 [place] [id number] [facility] 2019-07-24 2019-07-24 Orders Doctor ARELLANO 1.2.840.114 [id number] Univers 00:00:00 00:00:00 Only Unassigned, CINDI 350.1.13.10 [facility] 4.2.7.2.686 Adalberto as [phone] [address] 2019-07-24 2019-07-24 Orders Doctor ARELLANO 1.2.840.114 [id number] 00:00:00 00:00:00 Only Unassigned, CINDI 350.1.13.10 [facility] 4.2.7.2.686 [id number] 009 2017-11-25 2017-11-25 Outpatient [facility] PRIV 527 3045-20 [facility] 04:38:00 04:38:00 _Jacqueline [id number] Elly deleon 2017-11-25 2017-11-25 Outpatient [facility] PRIV 527 3045-20 [facility] 04:38:00 04:38:00 _Jacqueline [id number] Medica l Results Test Description Test Time Test Comments Results Result Comments Source SURGICAL 2022-04-01 16:13:00 Test Item Value Reference Range Interpretation Garima patricio SURGICAL RUN DATE: (test 04/01/22 [facility] PAGE 1 RUN TIME: 1613 Specimen Inquiry RUN USER: INTERFACE code = PATIENT: SR) ERNIE HERNANDEZ LOC: [place] U #: [id number] AGE/SX: 66/F ROOM: [facility] RE03/29/22[facility] DR: Bart Phillips MD : 57 BED: A DIS: 03/30/22 STATUS: DIS Celia TLOC: SPEC #: [id number] RECD: [id number] STATUS: BRAVO RERaj #: [id number] MATTEO: 03/29/22-[address] [facility] [address]: Ev Phillips MD ENTERED: 03/29/22 SP TYPE: SURGICAL OTHR DR: DOES_NOT KNOW Self ReferredORDERED: ANATOMIC SP EC/2, SPEC TRACK, 00768, 48822, 63057 COPIES TO: DOES_NOT KNOW Self Referred Ev Phillips MD [address] [address] [email or web address] PROCEDURES: 76925 (04/01/221126) 36684 (03/29/22) 74472 (04/01/22) TISSUES: A. UTERUS W/WO TUBES OVARIES NON NEOPLASTIC /PROLAPSE - UTERUS, CERVIX, BILATERAL FALLOPIAN TUBES, BILATERAL OVARIES B. SKIN OF BREAST - SKIN TAGS B ILATERAL BREASTS FINAL DIAGNOSIS A. UTERUS CERVIX BILATERAL TUBES AND OVARIES, HYSTERECTOMY AND BI LATERAL SALPINGOOOPHORECTOMY: -Uterus, 61 grams. - Inactive endometrium. 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 -Unremarkable myometrium. -Cervix with squamous metaplasia, and mild chronic inflammation. -Immunohistochemistry is performed after morphologic review of selected block of cervix including p16 which is negative, supporting the above diagnosis. -Fallopian tubes, bilateral, with parat ubal cyst. -Atrophic ovaries, bilateral, right with serous cystadenoma. -Negative for malignancy. B. SKIN TAGS, BREAST, EXCISION: -Consistent with fibroepithelial polyp/ skin tag, 3 fragments. -Negative for malignancy dysplasia. CONTINUED ON NEXT PAGE RUN DATE: 04/01/22 [facility] PAGE 2 RUN TIME: 1613 Specimen Inquiry RUN USER: INTERFACE SPEC #: [id number] PATIENT: ERNIE HERNANDEZ #[id number] (Continued) GROSS DESCRIPTION Specimen r eceived in formalin in 2 parts each labeled with patient's name, MRN, and date ofbirth.A. Specimen is labeled uterus, cervix, bilateral fallopian tubes, bilateral ovaries. Itconsists of a hysterectomy specimen with bilateral adnexa weighing in aggregate 61 g. Uterus measures 7.1 cm in length from fundus to distal most portion of exocervix, 3.9 cmin maximum cornu to cornu width and 2.3 cm anteroposteriorly . Serosa is lagunas-brown smooth. Cervix is 2.7 cm in length and 2.6 cm in greatest diameter. Os is sli t-like and 0.8 cmacross. Portio vaginalis is purple lagunas smooth. Cervical canal has lagunas rugated appear ance. Endometrial cavity is 3.7 cm in length and 1.3 cm in maximum width. Endometrium is tansmooth and 0.1 cm in thickness. Myometrium is lagunas- pink to lagunas-ruelas and up to 1.3 cm inthickness. Right fallopian tube with fimbria is 4.7 cm in length and 0.5 cm in diameter. Serosa is lagunas-brown smooth. It has an attached soft lagunas thin walled cyst which is alsoadherent to ovarian surface. Cyst measures 1.7 x 1.6 cm i n maximum dimensions andcontains clear fluid. Right ovary is lagunas-yellow correlated firm and measures 2.5 x 1.4 x0.9 cm in maximum dimensions. Cut surface is lagunas-yellow. Left fallopian tube with fimbriai s 3.9 cm in length and 0.5 cm in diameter. Serosa is lagunas-brown smooth. It has anattached soft lagunas thin walled paratubal cyst measuring 0.8 cm in greatest dimension. Cystis filled with clear fluid. Sectioning of fallopian tube revealed partially patent lumen. Left ovary is pale yellow cannulated firm measu ring 1.9 x 1.7 x 0.9 cm in maximumdimensions. Cut surface is lagunas-ruelas. Urology Physician Assistant sections are submitted as follows: A1-A2 anterior and posterior cervix A3-A4 anterior and posterior endomyometrium A5- A7 sales representative adding machines sections of right fallopian tube and ovary with entire fimbria andcyst A8-A9 repres entative sections of left fallopian tube and ovarywith entire fimbria and cyst B. Specimen is labeled skin tags bilateral breasts. It consists of 3 soft lagunas skin tagsranging from 0.1-0.3 cm in greatest dimen jcarlos. Resection margins are inked blue. Specimen is entirely submitted in cassette B1.aj03/30/22 Techn ical component performed at [facility],[place] [address] [address] , [place] [address] Unless gross only, the diagn osis is based upon microscopic examination.Immunohistochemistry: This test was developed and its perfor cierra characteristicsdetermined by this laboratory. It has not been approved nor does it need approval by [place] FDA. Appropriate positive and negative controls are reviewed and judged to beacceptable. This laboratory is certified under the Clinical Laboratory ImprovementAmendments (CLIA-88) as qualified to pe orm high complexity clinical laboratory testing. CLINICAL INFORMATION 03/29/22, OUT OF BODY 1210P, IN FORMALIN 1333, CYSTOCELE, UTERINE PROLAPSE, SKIN TAG BREASTBILATERAL, STRESS URINARY INCONTINENCE. CONTINUED ON NEXT PAGE RUN DATE: 04/01/22 [facility] PAGE 3 RUN TIME: 1613 Specimen Inquiry RUN USER: INTERFACE SPEC #: [id number] PATIENT: ERNIE HERNANDEZ #[id number] (Continued) Signed SIGNATURE ON FILE EstefaniParker 04/01/22 1613 END OF REPORT HGB [id number] 05:47:00 Test Item Value Reference Range Interpretation Comments HEMOGLOBIN (test code = HGB) 10.3 g/dL 10.1-13.8 N HEMATOCRIT (test code = HCT) 31.9 % 32.5-41.8 L Bacteria identified in Urine by [id number] 00:00:00 Test Item Value Reference Range Interpretation Comments Bacteria identified in Urine by see below no growth Culture (test code = 630-4) [facility] panel - [id number] 00:00:00 Test Item Value Reference Range Interpretation Comments Specific gravity of Urine 1.019 1.003-1.030 (test code = 2965-2) pH of Urine (test code = 5.0 5.0-8.0 2756-5) Protein [Presence] in Urine by negative negative Test strip (test code = 97840-5) Glucose [Presence] in Urine by negative negative Test strip (test code = 45329-8) Ketones [Presence] in Urine by negative negative Test strip (test code = 2514-8) Urobilinogen [Units/volume] in 0.2 mg/dL 0.2-1.0 Urine by Test strip (test code = 51396-7) Bilirubin.total [Presence] in negative negative Urine by Test strip (test code = 5770-3) Hemoglobin [Presence] in Urine negative negative by Test strip (test code = 5794-3) Nitrite [Presence] in Urine by negative negative Test strip (test code = 5802-4) Crystals [type] in Urine none none sediment by Light microscopy (test code = 5782-8) Leukocytes [#/area] in Urine 0-4 0-4 sediment by Microscopy high power field (test code = 5821-4) Erythrocytes [#/area] in Urine none seen none seen sediment by Microscopy high power field (test code = 66191-4) RBC casts [Presence] in Urine none seen 0-1 sediment by Light microscopy (test code = 51998-1) Hyaline casts [Presence] in 0-4 0-4 Urine sediment by Light microscopy (test code = 38094-0) Epithelial cells [Presence] in none none-few Urine sediment by Light microscopy (test code = 58606-3) Granular casts [Presence] in none seen 0-1 Urine sediment by Light microscopy (test code = 34502-4) Bacteria [Presence] in Urine none none-few sediment by Light microscopy (test code = 05824-6) Leukocyte esterase [Presence] negative negative in Urine by Test strip (test code = 5799-2) Color of Urine (test code = yellow yellow, straw, meeta 5778-6) Character of Urine (test code clear clear = 22709-5) [facility] [id number] 16:52:00 Test Item Value Reference Range Interpretation Comments UA COLOR (test code = COLU) YELLOW YELLOW UA APPEARANCE (test code = CLEAR CLEAR APPU) UA GLUCOSE DIPSTICK (test NEGATIVE NEG code = DGLUU) UA BILIRUBIN DIPSTICK (test NEGATIVE NEG code = BILU) UA KETONE DIPSTICK (test code TRACE NEG A = KETU) UA SPECIFIC GRAVITY (test 1.012 1.001-1.035 N code = SGU) UA BLOOD DIPSTICK (test code 2+ NEG A = KISHOR) UA PH DIPSTICK (test code = 5.0 5-9 ALLYSON) UA PROTEIN DIPSTICK (test NEGATIVE NEG code = PROU) UA UROBILINIOGEN DIPSTICK NEGATIVE mg/dL NEG (test code = URO) UA NITRITE DIPSTICK (test NEG NEG code = SINDY) UA LEUKOCYTE ESTERASE NEG NEG DIPSTICK (test code = LEUU) UA WBC (test code = WBCU) 0-2 #/hpf NONE SEEN UA RBC (test code = RBCU) 0-2 #/hpf NONE SEEN UA EPITHELIAL CELLS (test NONE SEEN #/HPF RARE-FEW code = EPIU) UA MUCUS (test code = MUCU) 1+ NONE SEEN URINE SAMPLE: CLEAN CATCHBacteria identified in Urine by [id number] 00:00:00 Test Item Value Reference Range Interpretation Comments Bacteria identified in Urine by no growth no growth Culture (test code = 630-4) [facility] MedicalUrinalysis complete panel - [id number] 00:00:00 Test Item Value Reference Range Interpretation Comments Specific gravity of Urine 1.008 1.003-1.030 (test code = 2965-2) pH of Urine (test code = 6.0 5.0-8.0 2756-5) Protein [Presence] in Urine by negative negative Test strip (test code = 80397-7) Glucose [Presence] in Urine by negative negative Test strip (test code = 46218-9) Ketones [Presence] in Urine by negative negative Test strip (test code = 2514-8) Urobilinogen [Units/volume] in 0.2 mg/dL 0.2-1.0 Urine by Test strip (test code = 98868-2) Bilirubin.total [Presence] in negative negative Urine by Test strip (test code = 5770-3) Hemoglobin [Presence] in Urine negative negative by Test strip (test code = 5794-3) Nitrite [Presence] in Urine by negative negative Test strip (test code = 5802-4) Crystals [type] in Urine none none sediment by Light microscopy (test code = 5782-8) Leukocytes [#/area] in Urine 0-4 0-4 sediment by Microscopy high power field (test code = 5821-4) Erythrocytes [#/area] in Urine none seen none seen sediment by Microscopy high power field (test code = 19401-7) RBC casts [Presence] in Urine none seen 0-1 sediment by Light microscopy (test code = 71814-0) Hyaline casts [Presence] in 0-4 0-4 Urine sediment by Light microscopy (test code = 35791-7) Epithelial cells [Presence] in none none-few Urine sediment by Light microscopy (test code = 45193-9) Granular casts [Presence] in none seen 0-1 Urine sediment by Light microscopy (test code = 41857-1) Bacteria [Presence] in Urine none none-few sediment by Light microscopy (test code = 79647-4) Leukocyte esterase [Presence] negative negative in Urine by Test strip (test code = 5799-2) Color of Urine (test code = yellow yellow, straw, meeta 5778-6) Character of Urine (test code clear clear = 99915-3) [facility] Medical[facility]acteria identified in Urine by [id number] 00:00:00 Test Item Value Reference Range Interpretation Comments Bacteria identified in Urine by no growth no growth Culture (test code = 630-4) [facility] MedicalUrinalysis complete panel - [id number] 00:00:00 Test Item Value Reference Range Interpretation Comments Specific gravity of Urine 1.008 1.003-1.030 (test code = 2965-2) pH of Urine (test code = 6.0 5.0-8.0 2756-5) Protein [Presence] in Urine by negative negative Test strip (test code = 59606-2) Glucose [Presence] in Urine by negative negative Test strip (test code = 68908-8) Ketones [Presence] in Urine by negative negative Test strip (test code = 2514-8) Urobilinogen [Units/volume] in 0.2 mg/dL 0.2-1.0 Urine by Test strip (test code = 95492-3) Bilirubin.total [Presence] in negative negative Urine by Test strip (test code = 5770-3) Hemoglobin [Presence] in Urine negative negative by Test strip (test code = 5794-3) Nitrite [Presence] in Urine by negative negative Test strip (test code = 5802-4) Crystals [type] in Urine none none sediment by Light microscopy (test code = 5782-8) Leukocytes [#/area] in Urine 0-4 0-4 sediment by Microscopy high power field (test code = 5821-4) Erythrocytes [#/area] in Urine none seen none seen sediment by Microscopy high power field (test code = 75235-9) RBC casts [Presence] in Urine none seen 0-1 sediment by Light microscopy (test code = 65150-9) Hyaline casts [Presence] in 0-4 0-4 Urine sediment by Light microscopy (test code = 01653-5) Epithelial cells [Presence] in none none-few Urine sediment by Light microscopy (test code = 35535-1) Granular casts [Presence] in none seen 0-1 Urine sediment by Light microscopy (test code = 24910-3) Bacteria [Presence] in Urine none none-few sediment by Light microscopy (test code = 54822-9) Leukocyte esterase [Presence] negative negative in Urine by Test strip (test code = 5799-2) Color of Urine (test code = yellow yellow, straw, meeta 5778-6) Character of Urine (test code clear clear = 39806-2) [facility] [id number] 17:47:00 Test Item Value Reference Range Interpretation Comments APPEARANCE (test code = Clear Clear 3468792582) COLOR (test code = Colorless Yellow A 2711402274) PH (test code = 4.8-8.0 7475824103) SP GRAVITY (test code = 1.003-1.030 L 4578476328) GLU U QUAL (test code = Normal Normal 9025356211) BLOOD (test code = 1+ Negative A 0486472223) KETONES (test code = Negative Negative 9920394541) PROTEIN (test code = Negative Negative 2887-8) UROBILIN (test code = Normal Normal 1836485222) BILIRUBIN (test code = Negative Negative 2664273892) NITRITE (test code = Negative Negative 7205188048) LEUK EDWARDO (test code = Negative Negative 5126572141) RBC/HPF (test code = See_Comment [Autom ated message] 5335710858) The system surespot generated this result transmit db reference range : 0 - 3 HPF. The refe rence range was not u sed to interpret th is result as normal/abnormal . WBC/HPF (test code = <1 See_Comment [Autom ated message] 5339527302) The system surespot generated this result transmit db reference range : 0 - 5 HPF. The refe rence range was not u sed to interpret th is result as normal/abnormal . BACTERIA (test code = Few Negative A 3937245257) Lab Interpretation (test Abnormal code = 86601-7) [facility] [id number] 17:40:00 Test Item Value Reference Range Interpretation Comments TROPONIN I (test <0.012 See_Comment [Automated code = 9801294425) message] The system which generated this result transmitted reference range : <=0.034 ng/mL. The reference range was not used to interpr et this result as normal/abnormal . STACI (test code = Equal or Less than STACI) 0.034 ng/ml---Normal ?Note: Cardiac troponin begins to rise 3-4 hours after the onset of ischemia. Repeat in 4-6 hours if the sample was drawn within 3-4 hours of the onset of the symptom and found normal. Between 0.035 and 0.120 ng/mL--- Borderline. Questionable myocardial injury or necrosis ? ?Note: Serial measurement may be necessary to confirm or exclude the diagnosis of myocardial injury or necrosis; Clinical correlation (symptoms, EKGs, imaging studies, and others) required; Repeat in 4-6 hours if clinically indicated. ? Equal or Higher than 0.121 ng/mL---Abnormal. Myocardial Injury or Necrosis Likely ? Biotin has been reported to cause a negative bias, interpret results relative to patient's use of biotin. ? Lab Interpretation Normal (test code = 81061-0) [facility] [id number] 17:36:00 Test Item Value Reference Range Interpretation Comments NT-proBNP (test code 62 pg/mL See_Comment [Autom ated = 5498265050) message] The system which generated this result transmitted reference range : <=125. The reference range was not used to interpret this result as normal/abnormal . STACI (test code = STACI) Biotin has been reported to cause a negative bias, interpret results relative to patient's use of biotin. Lab Interpretation Normal (test code = 81467-9) [facility] Metabolic Panel (NA, K, CL, CO2, GLUCOSE, BUN, CREATININE, CA)2020-04-05 17:28:00 Test Item Value Reference Range Interpretation Comments NA (test code = 138 mmol/L 135-145 4683830041) K (test code = 3.9 mmol/L 3.5-5 5649981885) CL (test code = 105 mmol/L 98-108 5347315527) CO2 TOTAL (test code = 26 mmol/L 23-31 6305637153) AGAP (test code = 2-16 6030217319) BUN (test code = 16 mg/dL 7-23 4141258551) GLUCOSE (test code = 97 mg/dL 70-110 [id number]) CREATININE (test code 0.59 mg/dL 0.5-1.04 = 1479068643) CALCIUM (test code = 9.3 mg/dL 8.6-10.6 8487261156) eGFR Calculation mL/min/1.73m2 (Non-) (test code = 5849226046) eGFR Calculation mL/min/1.73m2 () (test code = 0521894966) STACI (test code = STACI) Association of Glomerular Filtration Rate (GFR) and Staging of Kidney Disease* + -+ + ---+| GFR (mL/min/1.73 m2) ?| With Kidney Damage ?| ?Without Kidney Damage+ -------+ ------+ ---------+| ?>90 ?| ?Stage one ?| ? Normal ?+ --+ -+ ----+| ?60-89 ?| ?Stage two ?| ? Decreased GFR ? + -+ + ---+| ?30-59 ?| ?Stage three ?| ? Stage three ? + -+ + ---+| ?15-29 ?| ?Stage four ? | ? Stage four ?+ --+ -+ ----+| ?<15 (or dialysis) ? ?| ?Stage five ? | ? Stage five ?+ --+ -+ ----+ *Each stage assumes the associated GFR level has been in effect for at least three months. ?Stages 1 to 5, with or without kidney disease, indicate chronic kidney disease. Notes: Determination of stages one and two (with eGFR >59mL/min/1.73 m2) requires estimation of kidney damage for at least three months as defined by structural or functional abnormalities of the kidney, manifested by either:Pathological abnormalities or Markers of kidney damage (including abnormalities in the composition of the blood or urine or abnormalities in imaging tests). [facility] (ALB, T.PRO, BILI T, BU/BC, ALT, AST, ALK PHOS)2020-04-05 17:28:00 Test Item Value Reference Range Interpretation Comments TOTAL BILI (test code = 6541506693) 0.4 mg/dL 0.1-1.1 BILI UNCON (test code = 7466489364) 0.4 mg/dL 0.1-1.1 BILI CONJ (test code = 5965486439) 0.0 mg/dL 0-0.3 T PROTEIN (test code = 6056459396) 7.2 g/dL 6.3-8.2 ALBUMIN (test code = 7543619205) 4.0 g/dL 3.5-5 ALK PHOS (test code = 8291017039) 66 U/L 34-122 ALTv (test code = 1742-6) 20 U/L 5-35 AST(SGOT) (test code = 4646787912) 24 U/L 13-40 Lab Interpretation (test code = Normal 12670-4) [facility] with [id number] 17:15:00 Test Item Value Reference Range Interpretation Comments WBC (test code = See_Comment [Automated message] 6690-2) The system surespot generated this result transmitted ref erence range: 4.30 - 1 1.10 10*3/?L. The re ference range was not u sed to interpret this result as normal/abnor mal. RBC (test code = See_Comment [Automated message] 869-8) The system surespot generated this result transmitted ref erence range: 3.93 - 5 .25 10*6/?L. The re ference range was not u sed to interpret this result as normal/abnor mal. HGB (test code = 12.4 g/dL 11.6-15 718-7) HCT (test code = 37.6 % 35.7-45.2 4544-3) MCV (test code = 88.5 fL 80.6-95.5 787-2) MCH (test code = 29.2 pg 25.9-32.8 785-6) MCHC (test code = 33.0 g/dL 31.6-35.1 786-4) RDW-SD (test code 43.1 fL 39-49.9 = 06865-4) RDW-CV (test code 13.3 % 12-15.5 = 788-0) PLT (test code = See_Comment [Automated message] 777-3) The system surespot generated this result transmitted ref erence range: 166 - 35 8 10*3/?L. The re ference range was not u sed to interpret this result as normal/abnor mal. MPV (test code = 10.6 fL 9.5-12.9 75923-3) NRBC/100 WBC (test See_Comment [Automat ed message] code = 2723094833) The syste [employer] which generated this result transmitted ref erence range: 0.0 - 10 .0 /100 WBCs. The refer ence range was not u sed to interpret this result as normal/abnor mal. NRBC x10^3 (test <0.01 See_Comment [Automated message] code = 3352399970) The syste m which generated this result transmitted ref erence range: 10*3/?L. The reference range was not used to interpr et this result as normal/abnormal . GRAN MAT (NEUT) % 46.1 % (test code = 770-8) IMM GRAN % (test 0.30 % code = 7413501399) LYMPH % (test code 43.1 % = 736-9) MONO % (test code 6.5 % = 5905-5) EOS % (test code = 3.5 % 713-8) BASO % (test code 0.5 % = 706-2) GRAN MAT 2.76 10*3/uL 1.88-7.09 x10^3(ANC) (test code = 7343157091) IMM GRAN x10^3 <0.03 0-0.06 (test code = 4881531486) LYMPH x10^3 (test 2.58 10*3/uL 1.32-3.29 code = 731-0) MONO x10^3 (test 0.39 10*3/uL 0.33-0.92 code = 742-7) EOS x10^3 (test 0.21 10*3/uL 0.03-0.39 code = 711-2) BASO x10^3 (test 0.03 10*3/uL 0.01-0.07 code = 704-7) [facility] 01:30:00 Test Item Value Reference Range Interpretation Comments APPEARANCE (test code = Clear Clear 5626159221) COLOR (test code = Straw Yellow A 5558258525) PH (test code = 4.8-8.0 8635451087) SP GRAVITY (test code = 1.003-1.030 5802900209) GLU U QUAL (test code = Normal Normal 2974202196) BLOOD (test code = 1+ Negative A 6412567866) KETONES (test code = Negative Negative 0466860533) PROTEIN (test code = Negative Negative 2887-8) UROBILIN (test code = Normal Normal 8965987841) BILIRUBIN (test code = Negative Negative 8872101594) NITRITE (test code = Negative Negative 5907374539) LEUK EDWARDO (test code = Negative Negative 8411150623) RBC/HPF (test code = See_Comment [Autom ated message] 3375649001) The system surespot generated this result transmitted ref erence range: 0 - 3 HP F. The reference range was not used to int erpret this result as normal/abnormal . WBC/HPF (test code = See_Comment [Autom ated message] 7800214659) The system surespot generated this result transmitted ref erence range: 0 - 5 HP F. The reference range was not used to int erpret this result as normal/abnormal . BACTERIA (test code = Negative Negative 7951602514) SQ EPITH (test code = <1 HPF 3667293074) Lab Interpretation (test Abnormal code = 71183-4) [facility] Center[facility] PEL[facility] WO [id number] 01:05:50 No nephrolithiasis or acute abdominal abnormality. Nonspecific mesenteric reactive nodes again noted. EXAM: CT ABDOMEN AND PELVIS WITHOUT CONTRAST HISTORY: 63-year-old female with acute abdominal pain. COMPARISON: 04/15/2018 TECHNIQUE AND FINDINGS: Contiguous axial imaging from the level of the lungbases through the pubic symphysis was performed without contrast. Coronaland sagittal reconstructions were obtained. DOSE: DLP is 302 mGy/cm. FINDINGS: LOWER THORAX: The lungs bases are clear. No cardiomegaly. LIVER: No focal hepatic lesions. ?No biliary ductal dilation. GALLBLADDER AND BILIARY TREE: Nobiliary ductal dilation. ?The gallbladderis absent. SPLEEN: No splenomegaly. PANCREAS: No ductal dilation or masses. ADRENAL GLANDS: No adrenal nodules. KIDNEYS: No hydronephrosis, stones, or masses. PERITONEUM AND RETROPERITONEUM: No free air or fluid. LYMPH NODES: Nonspecific mild prominent lymph nodes again seen similar toexam from 2018. GI TRACT: No dilation or wall thickening. PELVIS/BLADDER: Unremarkable. VESSELS: Unremarkable. BONES AND SOFT TISSUES: No suspicious lytic or sclerotic bony lesions.Moderate degenerative changes of the lumbar spine with lumbar levoconvexcurvature. [facility], Radiant R esults Inft User - 07/24/2019 7:07 PM CSTEXAM: CT ABDOMEN AND PELVIS WITHOUT CONTRASTHISTORY: 63-year-old female with acute abdominal pain.COMPARISON: 04/15/2018TECHNIQUE AND FINDINGS: Contiguous axialimaging from the level of the lungbases through the pubic symphysis was performed without contrast. Coronaland sagittal reconstructions were obtained.DOSE: DLP is 302 mGy/cm.FINDINGS:LOWER THORAX: The lungs bases are clear. No cardiomegaly.LIVER: No focal hepatic lesions. No biliary ductal dilation.GALLBLADDER AND BILIARY TREE: No biliary ductal dilation. The gallbladderis absent.SPLEEN: No splenomegaly.PANCREAS: No ductal dilation or masses.ADRENAL GLANDS: No adrenal nodules.KIDNEYS: No hydronephrosis, stones, or masses.PERITONEUM AND RETROPERITONEUM: No free air or fluid.LYMPH NODES: Nonspecific mild prominent lymph nodes again seen similar toexam from 2018.GI TRACT: No dilation or wall thickening.PELVIS/BLADDER: Unremarkable.VESSELS: Unremarkable.BONES AND SOFT TISSUES: No suspicious lytic or sclerotic bony lesions.Moderate degenerative changes of the lumbar spine with lumbar levoconvexcurvature. IMPRESSIONNo nephrolithiasis or acute abdominal abnormality.Nonspecific mesenteric reactive nodes again noted.[facility] [place] [facility] CenterXR CHEST 2 [id number] 00:41:20 No acute intrathoracic abnormality.PROCEDURE: XR CHEST 2 VW CLINICAL INDICATION: chest pain COMPARISON: 04/15/2018 FINDINGS: The lungs are clear, no infiltrate or nodule seen. No pleural effusion or pneumothorax is seen. The cardiomediastinal silhouette is normal. No acute bony abnormality.The thoracic spine has a mild dextroconvex curvature, stable.Surgical clips project in the gallbladder fossa. [facility], Radiant Results Inft User - 07/24/2019 6:42 PM CSTPROCEDURE: XR CHEST 2 VWCLINICAL INDICATION: chest pain COMPARISON: 04/15/2018FINDINGS:The lungs are clear, no infiltrate or nodule seen. No pleural effusion or pneumothorax is seen. The cardiomediastinal silhouette is normal. No acute bony abnormality.The thoracic spine has a mild dextroconvex curvature, stable.Surgical clips project in the gallbladder fossa.IMPRESSIONNo acute intrathoracic abnormality.[facility] CenterTroponin [id number] 00:31:00 Test Item Value Reference Range Interpretation Comments TROPONIN I (test <0.012 See_Comment [Automated code = 7483053606) message] The system which generated this result transmitted reference range : <=0.034 ng/mL. The reference range was not used to interpr et this result as normal/abnormal . STACI (test code = Equal or Less than STACI) 0.034 ng/ml---Normal ?Note: Cardiac troponin begins to rise 3-4 hours after the onset of ischemia. Repeat in 4-6 hours if the sample was drawn within 3-4 hours of the onset of the symptom and found normal. Between 0.035 and 0.120 ng/mL--- Borderline. Questionable myocardial injury or necrosis ? ?Note: Serial measurement may be necessary to confirm or exclude the diagnosis of myocardial injury or necrosis; Clinical correlation (symptoms, EKGs, imaging studies, and others) required; Repeat in 4-6 hours if clinically indicated. ? Equal or Higher than 0.121 ng/mL---Abnormal. Myocardial Injury or Necrosis Likely ? Biotin has been reported to cause a negative bias, interpret results relative to patient's use of biotin. ? Lab Interpretation Normal (test code = 52165-1) [facility] (NA, K, CL, CO2, GLUCOSE, BUN, CREATININE, CA)2019-07-25 00:21:00 Test Item Value Reference Range Interpretation Comments NA (test code = 139 mmol/L 135-145 7849614284) K (test code = 3.9 mmol/L 3.5-5 1227556283) CL (test code = 106 mmol/L 98-108 8220941629) CO2 TOTAL (test code = 27 mmol/L 23-31 2217889588) AGAP (test code = 2-16 2442798798) BUN (test code = 19 mg/dL 7-23 4885175588) GLUCOSE (test code = 119 mg/dL 70-110 H 0588904372) CREATININE (test code = 0.70 mg/dL 0.5-1.04 7987671717) CALCIUM (test code = 9.5 mg/dL 8.6-10.6 7487456440) eGFR Calculation mL/min/1.73m2 (Non-) (test code = 7365173488) eGFR Calculation mL/min/1.73m2 () (test code = 2001811517) STACI (test code = STACI) Association of Glomerular Filtration Rate (GFR) and Staging of Kidney Disease* + --+ --+ ------+| GFR (mL/min/1.73 m2) ?| With Kidney Damage ?| ?Without Kidney Damage+ --------+ --------+ +| ?>90 ?| ?Stage one ?| ? Normal ?+ ---+ ---+ -------+| ?60-89 ?| ?Stage two ?| ? Decreased GFR ? + --+ --+ ------+| ?30-59 ?| ?Stage three ?| ? Stage three ? + --+ --+ ------+| ?15-29 ?| ?Stage four ? | ? Stage four ?+ ---+ ---+ -------+| ?<15 (or dialysis) ? ?| ?Stage five ? | ? Stage five ?+ ---+ ---+ -------+ *Each stage assumes the associated GFR level has been in effect for at least three months. ?Stages 1 to 5, with or without kidney disease, indicate chronic kidney disease. Notes: Determination of stages one and two (with eGFR >59mL/min/1.73 m2) requires estimation of kidney damage for at least three months as defined by structural or functional abnormalities of the kidney, manifested by either:Pathological abnormalities or Markers of kidney damage (including abnormalities in the composition of the blood or urine or abnormalities in imaging tests). Lab Interpretation Abnormal (test code = 35136-9) [facility] (ALB, T.PRO, BILI T, BU/BC, ALT, AST, ALK PHOS)2019-07-25 00:21:00 Test Item Value Reference Range Interpretation Comments TOTAL BILI (test code = 2093146159) 0.1 mg/dL 0.1-1.1 BILI UNCON (test code = 0923144043) 0.0 mg/dL 0.1-1.1 L BILI CONJ (test code = 4919765358) 0.0 mg/dL 0-0.3 T PROTEIN (test code = 2262598327) 7.2 g/dL 6.3-8.2 ALBUMIN (test code = 7721135051) 4.4 g/dL 3.5-5 ALK PHOS (test code = 2798969689) 72 U/L 34-122 ALTv (test code = 1742-6) 19 U/L 5-35 AST(SGOT) (test code = 5919854680) 31 U/L 13-40 Lab Interpretation (test code = Abnormal 80237-1) [facility] CenterLipase [id number] 00:21:00 Test Item Value Reference Range Interpretation Comments LIPASE (test code = 5183716947) 57 U/L 0-220 Lab Interpretation (test code = Normal 85496-9) [facility] CenteraPTT2020-02-06 00:08:00 Test Item Value Reference Range Interpretation Comments APTT Patient (test See_Comment [Automat ed code = 3173-2) message] The system which generated this result transmitted reference range : 23 - 38 Seconds . The reference range was not used to interpr et this result as normal/abnormal . STACI (test code = STACI) [facility] mean normal value for aPTT is 30 seconds. Lab Interpretation Normal (test code = 43530-9) [facility] CenterProthrombin Time (PT) / [id number] 00:06:00 Test Item Value Reference Range Interpretation Comments PROTIME PATIENT (test See_Comment [Auto mated message] code = 5964-2) The system wh ich generated this result transmitted ref erence range: 12.0 - 1 4.7 Seconds. The re ference range was not u sed to interpret this result as normal/abnor mal. INR (test code = 6301-6) Nor mal INR <1.1; Warfarin Therap eutic range 2.0 to 3. 0 or 2.5 to 3.5, dep ending upon the indica tions. Lab Interpretation (test Normal code = 19785-4) [facility] CenterCB WITH [id number] 23:53:00 Test Item Value Reference Range Interpretation Comments WBC (test code = See_Comment [Automated 1790-2) message] The sy stem which generated this result transmitted reference range : 4.30 - 11.10 10*3/?L. The reference range was not used to interpret this result as normal/abnormal . RBC (test code = See_Comment [Automated 119-8) message] The sy stem which generated this result transmitted reference range : 3.93 - 5.25 10*6/?L. The reference range was not used to interpret this result as normal/abnormal . HGB (test code = 12.5 g/dL 11.6-15 718-7) HCT (test code = 37.9 % 35.7-45.2 4544-3) MCV (test code = 85.9 fL 80.6-95.5 787-2) MCH (test code = 28.3 pg 25.9-32.8 785-6) MCHC (test code = 33.0 g/dL 31.6-35.1 786-4) RDW-SD (test code = 39.5 fL 39-49.9 03701-4) RDW-CV (test code = 12.5 % 12-15.5 788-0) PLT (test code = See_Comment [Automated 777-3) message] The sy stem which generated this result transmitted reference range : 166 - 358 10*3/ ?L. The reference r dev was not used to interpret this result as normal/abnormal . MPV (test code = 9.6 fL 9.5-12.9 68713-3) NRBC/100 WBC (test See_Comment [Automat ed code = 0755799428) message] The system which generated this result transmitted reference range : 0.0 - 10.0 /100 WBCs. The refer ence range was not u sed to interpret th is result as normal/abnormal . NRBC x10^3 (test code <0.01 See_Comment [Auto mated = 7337951189) message] The s ystem which generated this result transmitted reference range : 10*3/?L. The reference range was not used to interpret this result as normal/abnormal . GRAN MAT (NEUT) % 70.1 % (test code = 770-8) IMM GRAN % (test code 0.50 % = 2987537296) LYMPH % (test code = 23.0 % 736-9) MONO % (test code = 4.2 % 5905-5) EOS % (test code = 1.7 % 713-8) BASO % (test code = 0.5 % 706-2) GRAN MAT x10^3(ANC) 5.30 10*3/uL 1.88-7.09 (test code = 7538512494) IMM GRAN x10^3 (test 0.04 10*3/uL 0-0.06 code = 6868600897) LYMPH x10^3 (test code 1.74 10*3/uL 1.32-3.29 = 731-0) MONO x10^3 (test code 0.32 10*3/uL 0.33-0.92 L = 742-7) EOS x10^3 (test code = 0.13 10*3/uL 0.03-0.39 711-2) BASO x10^3 (test code 0.04 10*3/uL 0.01-0.07 = 704-7) Lab Interpretation Abnormal (test code = 51888-5) [facility] Notes Date/Time Note Provider Source 2022-03-30 07:20:00-00:00 [facility] ([facility]) Gynecology Post Prog Note REPORT#:[id number] REPORT STATUS: Signed DATE:03/30/22 TIME: 719 PATIENT: ERNIE HERNANDEZ UNIT #: [id number] ROOM/BED: [address] : 57 AGE: 66 SEX: F ATTEND: Ap Phillips MD ADM AUTHOR: Ev Phillips MD * ALL edits or amendments must be made on the [employer]/computer document * General ORM Surgeries: Surgery Date and Time: 03/29/2022 1230 Primary Procedure: FOUR PUNCTURE TOTAL LAPAROSC OPIC Secondary Procedures: LAPAROSCOPIC SACRALCOLPOP EXY MIDURETHRAL SLING CYSTOSCOPY WITH PROCEDURE EXCISION OF SKIN TAG BILATERAL BREASTS Post-op: day 1 Subjective Patient reports: Yes: ambulating, flatus/bowel movement, pain con trolled, tolerating diet. Objective General VS/I O: Last Documented: Result Date Time Pulse Ox 98 03/30 511 B/P 105/52 03/30 511 B/P Mean 69.8 03/30 511 O2 Delivery Room air 03/30 511 Temp 98.8 03/30 511 Pulse 93 03/30 511 Resp 18 03/30 511 O2 Flow Rate 2 03/29 1515 24 hour I O ending at 0700: 03/30 0700 03/29 1900 Intake Total 1150.00 1890.00 Output Total 1100 600 Balance 50.00 1290.00 Intake, IV 650.00 1650.00 Intake, Oral 500 240 Output, 50 Estimated Blood Loss Output, Urine 1100 550 Patient 63 kg Weight Weight Standing scale Measurement Method PATIENT WEIGHT: Weight (lb): 138 Weight (oz): 14.26 Weight (kg): 63.000 Physical Exam General appearance: alert, awake, oriented, no a cute distress, pleasant, conversational, mental status normal Abdomen: normal bowel sounds, soft Results Findings/Data: Laboratory Tests 03/30 515 Hematology Hgb (10.1 - 13.8 g/dL) 10.3 Hct (32.5 - 41.8 %) 31.9 L Diagnosis, Assessment Plan Free Text A P: -voiding trial -d/c instructions reviewed Electronically Signed by Ev Phillips MD on 1 at 0721 [facility] #:[id number] END OF REPORT 2022-03-29 14:21:00-00:00 [id number] [facility] [address], [place] [address] PATIENT NAME: ERNIE HERNANDEZ ADMIT DATE: 03/29/22 ACCOUNT NO: [id number] ROOM NO: [facility] AGE: 66 SEX: F ADMITTING PHYSICIAN: Ev Phillips MD ATTENDING PHYSICIAN: Ev Phillips MD OPERATION DATE: 03/29/2022 PREOPERATIVE DIAGNOSES: 1. Uterine prolapse. 2. Cystocele. 3. Stress urinary incontinence. 4. Skin tags of the breasts, bilateral. POSTOPERATIVE DIAGNOSES: 1. Uterine prolapse. 2. Cystocele. 3. Stress urinary incontinence. 4. Skin tags of the breasts, bilateral. PROCEDURES: 1. Total laparoscopic hysterectomy. 2. Laparoscopic bilateral salpingo-oophorectomy. 3. Laparoscopic sacral colpopexy with Restorell e mesh. 4. Transobturator midurethral sling. 5. Cystourethroscopy. 6. Excision of skin tags. SURGEON: Ev Phillips M.D. CAREER ORIENTATION TEACHER: resident, Ale Li M.D. ANESTHESIA: General endotracheal and local. ESTIMATED BLOOD LOSS: 50 mL. INDICATIONS: Ms. Hernandez is a 66-year-old female who presented with symptomatic stage III prolapse. Complex urodynamic t esting with reduction of prolapse also confirmed urodynamic stress incontinence. After extensive counseling, she elected to have restorative surgical interventio n with mesh augmentation. Additionally, she complained of bothersome skin tags on the breasts bilaterally. She requested excision. FINDINGS: Laparoscopy revealed adhesions in the upper abdomen from the patient's previous open chol ecystectomy. The liver was unable to be visualized. There were also omental adhesions that extended into the surrounding area of the umbilicus and to the rig ht pelvic brim. She had normal-appearing uterus and fallopian tubes with atrophic appearing ovaries. There was a paraovarian cyst on the right. Cystourethroscopy revealed uretera l orifices in the normal PATIENT NAME: ERNIE HERNANDEZ anatomical location with excellent bilateral ure teral efflux. There was no evidence of bladder lesions or injury. The ureth ra was noted to be intact. PROCEDURE IN DETAIL: The patient was kris en to the operating room where she was prepped and draped in the us ual sterile fashion in a dorsal lithotomy position. A Thomas catheter was placed through the urethral meatus. A MARLINE uterine manipulator and SUKI colpotomizer were secured in place. Attention was then turned to the abdomen. In the umbilical region, a 5 mm skin incision was made. Through this incision, the V eress needle was introduced and pneumoperitoneum to 15 mmHg was obtained. A 5 mm laparoscope via 5 mm Optiview trocar was inserted. The inferior epigastric vessels were identified along the patient's anterior abdominal wall. In the patie nt's left lower quadrant, an 8 mm skin incision was made and 8 mm trocar was placed under direct vis ualization. In the patient's right lower quadrant and midline suprapu bically, 5 mm skin incisions were made and 5 mm trocars were placed under direct visual ization. The laparoscope was then introduced through the suprapubic trocar. Cyndee boo Harmonic scalpel was then used to lyse omental adhesio ns from the umbilical and right pelvic brim. I then proceeded with the planned procedure. Beginning on the patient's left side, the round ligament was coagulated and transected with the Harmonic scalpel. The Harmonic scalpel was used to open the anterior leaf of the broad ligament followed by the vesicouterine peritoneum. Adjacent to the left ovary, the infundibulopelvi c ligament was coagulated and transected with the Harmonic scalpel. This was e xtended to the previously transected round ligament. Uterine artery was sk eletonized. At the level of the internal cervical os, the uterine ar christine was coagulated. The same was then performed on the patient's right side with good hemostasis. EndoShears were used to sharply dissect the bladder from the pubocervical tissue anteriorly. At the level of the internal cervical os, t he uterine artery was again coagulated and transected with the Harmonic scalpel. This w as performed bilaterally with good hemostasis. With the assistance of the vagi nal SUKI colpotomizer, the Harmonic scalpel was used to circumferen tially detach the cervix from the apex of the vagina. Care was taken to stay inside of the previously transected uterine artery pedicle. Specimen was delivered t hrough the vaginal colpotomy. The vaginal cuff was closed in a double layer fa shion using a 0 V-Loc 180 suture. Good hemostasis was noted. A Lucite stent was placed in the vagina. The bladder was further dissected from the pubocervical tissue anteriorly. Post eriorly, the peritoneum was opened and dissection was carried down the rectovaginal tis shayy to the rectal reflection. At the sacral promontory, the peritoneum was ope salo and blunt dissection was carried down to identify the anterior longitudin al ligament at the sacral promontory. The course of the ureter along the r ight pelvic sidewall was visualized as well as the course of the sigmoid colon. The peritoneum and the right paracolic gutter was o pened and extended to the previous posterior vaginal dissection. The Restorelle mesh was intr oduced into the abdomen. Anteriorly, it was secured to the pubocervical tissue with a combination of 2-0 PDS and 2-0 Ethibond sutures. Posteriorly, it was secured to the rect ovaginal tissue in a similar fashion. The tail was loosely placed in the right paracolic gutter and secured to the anterior longitudinal ligament at the sac ral promontory with a capture device. Good hemostasis was noted. The peritoneu m overlying the graft was closed in a continuous fashion using a 0 Monocry l suture, resulting in full coverage of the graft. The pelvis was irrigated and reexamined under low PATIENT NAME: ERNIE HERNANDEZ pressures with hemostasis assured. The anterior vaginal epithelium at the mid midur ethra was injected with 0.25% Marcaine with epinephrine. A slightly gr eater than 1 cm incision was made. The vaginal epithelium was sharp ly dissected from the underlying urethra towards the ischiopubic ramus bilaterally. At the level of t he clitoris and genitofemoral fold, the skin was injected with 0.25% M arcaine with epinephrine and 3 mm skin incisions made. Through this incision, the transobturator trocar was introduced transversing the underlying muscle, the obturator membrane at its superomedial border and exiting through the previously made v aginal incision. The vaginal sulcus was inspected and noted to be free of any perforations. This was performed bilaterally. Thomas catheter was remove d. Cystourethroscopy was then performed with a 70-degree cystoscope revealing the above noted findings. A complete bladder survey with full bladder disten tion was performed. Thomas catheter was replaced. The sling was ten sioned using Mena scissors as a spacer between the mesh and underlying urethra. Excess mesh was trimmed at the skin margin. The vaginal epithelium was closed in a c ontinuous fashion with 2-0 Vicryl suture. External skin incisions were clos ed with dermal glue. Trocars were removed under d irect visualization. Pneumoperitoneum was released. Skin incisions were injected with 0.25% Marcain e with epinephrine. Skin incisions were closed with 4-0 Monocryl and Derm abond glue. On the patient's right breast, there were two sm all skin tags and on the patient's left breast, one small skin tag. All o f these were injected with a small amount of 0.25% Marcai ne with epinephrine. These were excised and minimal bleeding was present. Band-Aids were placed over excision sites. The patient tolerated the procedure well. Sponge , lap, and needle counts were correct x2. She was taken to recovery room in [facility] condition. Dictated By: Ev Phillips MD Date Dictated: 03/29/2022 14:21:56 Date Transcribed: 03/29/2022 19:57:19 /NAF Receipt ID: [id number] Authenticated by Ev Phillips MD On 04/07/20 01:57:35 PM at 0157 PATIENT NAME: ERNIE HERNANDEZ 2020-03-22 15:33:00-00:00 [id number] [facility] [address], [place] [address] PATIENT NAME: ERNIE HERNANDEZ ADMIT DATE: ACCOUNT NO: [id number] ROOM NO: AGE: 66 SEX: F ADMITTING PHYSICIAN: ATTENDING PHYSICIAN: Ev Phillips MD Order: [id number] Test Reason : PRE- OP Test Date/Time Stamp: MonMar 22 2022 15:33:36 Blood Pressure : / mmHG Vent. Rate : 066 BPM Atrial Rate : 066 BPM P-R Int : 154 ms QRS Dur : 094 ms QT Int : 402 ms P-R-T Axes : 029 030 019 degree s QTc Int : 421 ms Normal sinus rhythm Normal ECG No previous ECGs available Confirmed by KOSTAS STOLL ([id number]) on 022 5:31:53 PM Referred By: Self Referred Confirmed by:FALGUNI STOLL at 1733 PATIENT NAME: ERNIE HERNANDEZ "
[2022-12-16] MEDS ORDERED: NA CHLORIDE 0.9% 1,000 ML ONE (10:11)
[2022-12-16 10:19] LABS: Absolute Lymphocytes (CBC) 2.1 K/uL (0.7-4.9); Hematocrit 39.8 % (36.0-45.0); Lymphocytes % 41.5 % (15.3-44.8); MCV 86.6 fL (80-100); MPV 7.7 fL (7.6-11.3); RBC Red Blood Cell Count 4.59 M/uL (3.86-4.86)
[2022-12-16 10:31] LABS: Specific Gravity 1.021 (1.005-1.030); Urine Bacteria None Seen /HPF (<20); Urine Bilirubin NEGATIVE (Negative); Urine Blood 1+ (Negative); Urine Clarity Clear (Clear); Urine Color Light-Yellow (Yellow); Urine Glucose NEGATIVE (Negative); Urine Mucus Slight /HPF (None Seen); Urine Protein NEGATIVE (Negative); Urine Urobilinogen Normal (Normal)
--- NOTE | 2022-12-16 10:53 | RAD REPORT ---
EXAM DESCRIPTION: CT - Head Brain Wo Cont - 12/16/2022 10:27 am CLINICAL HISTORY: Headache;Dizziness COMPARISON: MRI BRAIN WITHOUT CONTRAST dated 11/27/2014; MRI BRAIN WITHOUT CONTRAST dated 07/29/2009 TECHNIQUE: Noncontrast head CT images were obtained without IV contrast. Multiplanar reformats were generated and reviewed. All CT scans are performed using dose optimization technique as appropriate and may include automated exposure control or mA/KV adjustment according to patient size. FINDINGS: No intracranial hemorrhage, mass, or edema. Midline structures are unremarkable. Few scatt ered calcifications along the frontal cortex bilaterally, nonspecific, and may relate to intracranial atherosclerotic disease. Normal ventricular caliber for age. Fink-white matter differentiation is preserved, without evidence of acute infarct. No abnormal extra- axial fluid collections. Mild periventricular and deep white matter hypodensities, nonspecific, and most suggestive of chronic small vessel ischemic changes. Mastoid air cells and visualized portions of the paranasal sinuses are clear. No acute bony findings. IMPRESSION: No evidence of an acute intracranial process. Chronic findings as above.
[2022-12-16] MEDS ORDERED: IBUPROFEN 400 MG TAB ONE (11:02)
--- NOTE | 2022-12-16 11:13 | RAD REPORT ---
EXAM DESCRIPTION: CT - Abdomen Pelvis Wo Contrast - 12/16/2022 10:30 am CLINICAL HISTORY: ABD PAIN COMPARISON: Stone Protocol dated 12/03/2016; Abdomen Pelvis Wo Contrast dated 03/16/2016; CT ABDOMEN PELVIS WO CONTRAST dated 06/09/2010; CT ABDOMEN PELVIS WO CONTRAST dated 11/22/2008 TECHNIQUE: Thin cut axial CT imaging of the abdomen and pelvis was performed without IV contrast. Mu ltiplanar reformats were generated and reviewed. All CT scans are performed using dose optimization technique as appropriate and may include automated exposure control or mA/KV adjustment according to patient size. FINDINGS: No suspicious findings in the lung bases. The liver, spleen, adrenal glands, and pancreas show no suspicious findings. Gallbladder was surgical ly removed. No evidence of intra or extrahepatic biliary ductal dilation. Stable nonspecific fat stranding in the left central mesentery. Symmetric renal contour, without suspicious parenchymal findings within limits of noncontrast techniq ue. No evidence of radiopaque calculi or hydroureteronephrosis. No dilated bowel loops or bowel wall thickening. No free air, free fluid or inflammatory stranding. N o hernia, mass or bulky lymphadenopathy. The urinary bladder is without significant finding. No suspicious bony findings. IMPRESSION: No acute intra-abdominal process. Stable nonspecific fat stranding in the left central mesentery. This can have numerous etiologies, in cluding infection, inflammation, and fibrosing mesenteritis, but can be idiopathic.
--- NOTE | 2022-12-16 11:16 | RAD REPORT ---
EXAM DESCRIPTION: [facility] Single View12/16/2022 10:35 am CLINICAL HISTORY: dizziness COMPARISON: Chest Pa And Lat (2 Views) dated 03/21/2022; Chest Pa And Lat (2 Views) dated 09/14/2017; CHEST SINGLE VIEW dated 06/09/2010; CHEST PA AND LAT 2 VIEW dated 04/07/2009 TECHNIQUE: Portable AP view of the chest. FINDINGS: The lungs are clear. No pneumothorax or effusion. The cardiomediastinal contours are unre markable. IMPRESSION: No acute cardiopulmonary process.
--- NOTE | 2022-12-16 11:29 | ER ---
Nurse's Notes [facility] Name: Alaina Hernandez Age: 67 yrs Sex: Female : 1955 Arrival Date: 12/16/2022 Time: 09:26 Bed 18 Private MD: Diagnosis: Hematuria, unspecified;Dizziness and giddiness;Pelvic Discomfort Presentation: 12/16 09:34 Chief complaint: Patient states: headache, confusion, blurry vision that began 3 days ss ago. Coronavirus screen: Client denies travel out of the [place] in the last 14 days. Ebola Screen: Patient denies exposure to infectious person. Patient denies travel to an Ebola-affected area in the 21 days before illness onset. Initial Sepsis Screen: Does the patient meet any 2 criteria? No. Patient's initial sepsis screen is negative. Does the patient have a suspected source of infection? No. Patient's initial sepsis screen is negative. Risk Assessment: Do you want to hurt yourself or someone else? Patient reports no desire to harm self or others. Onset of symptoms was December 13, 2022. 09:34 Method Of Arrival: Ambulatory ss 09:34 Acuity: GABRIELLE 3 ss Triage Assessment: 09:37 General: Appears in no apparent distress. uncomfortable, Behavior is calm, cooperative. eh3 Pain: Complains of pain in abdomen. GI: Abdomen is round non-distended. Historical: - Allergies: 09:34 Aspirin; ss 09:34 Iodine; ss 09:34 shrimp, peanuts,; ss 09:34 SHELLFISH; ss - PMHx: 09:34 "my stomach feels swollen for months, bad stomach"; GERD; prolapsed uterus; ss - Immunization history:: Client reports receiving the Andres \\T\\ Andres single-dose vaccine. - Social history:: Smoking status: Patient denies any tobacco usage or history of. Screenin:38 [facility] ED Fall Risk Assessment (Adult) Score/Fall Risk Level 0 - 2 = Low Risk. Abuse eh3 screen: Denies threats or abuse. Denies injuries from another. Nutritional screening: No deficits noted. Tuberculosis screening: No symptoms or risk factors identified. Assessment: 09:38 General: Appears in no apparent distress. uncomfortable, Behavior is calm, cooperative. eh3 Pain: Complains of pain in left lower quadrant Pain radiates to left flank. Neuro: Level of Consciousness is awake, alert, obeys commands, Oriented to person, place, time, situation. Cardiovascular: Capillary refill < 3 seconds Patient's skin is warm and dry. Respiratory: Airway is patent Respiratory effort is even, unlabored, Respiratory pattern is regular, symmetrical. GI: Abdomen is round non-distended, Bowel sounds present X 4 quads. Abd is soft X 4 quads Abdomen is tender to palpation in left lower quadrant. : Reports burning with urination, urinary frequency. Derm: Skin is pink, warm \\T\\ dry. Musculoskeletal: Circulation, motion, and sensation intact. 10:30 Reassessment: Patient appears in no apparent distress at this time. Patient and/or eh3 family updated on plan of care and expected duration. Pain level reassessed. Patient is alert, oriented x 3, equal unlabored respirations, skin warm/dry/pink. Pt c/o headache and requests ibuprofen, Dr. Fontenot notified. 11:30 Reassessment: Patient appears in no apparent distress at this time. Patient and/or eh3 family updated on plan of care and expected duration. Pain level reassessed. Patient is alert, oriented x 3, equal unlabored respirations, skin warm/dry/pink. Vital Signs: 09:34 BP 145 / 90; Pulse 76; Resp 17; Temp 98.4(TE); Pulse Ox 99% on R/A; Weight 62.6 kg; ss Height 5 ft. 2 in. ; Pain 10/10; 10:30 BP 129 / 64; Pulse 75; Resp 18; Pulse Ox 100% on R/A; eh3 11:30 BP 122 / 98; Pulse 65; Resp 18; Pulse Ox 100% on R/A; eh3 09:34 Body Mass Index 25.24 (62.60 kg, 157.48 cm) ss 09:34 Pain Scale: Adult ss ED Course: 09:28 Patient arrived in ED. rg4 09:29 Yair Fontenot DO is Attending Physician. ms3 09:34 Arm band placed on right wrist. ss 09:36 Triage completed. ss 09:37 Margo Menchaca, RN is Primary Nurse. eh3 09:38 Patient has correct armband on for positive identification. Placed in gown. Bed in low eh3 position. Call light in reach. Side rails up X2. Pulse ox on. NIBP on. Door closed. Noise minimized. Warm blanket given. 09:38 Inserted saline lock: 20 gauge in right antecubital area, using aseptic technique. eh3 Blood collected. Completed by [facility] staff. 10:29 CT Head Brain wo Cont In Process Unspecified. EDMS 10:32 Abdomen In Process Unspecified. EDMS 10:37 CXR XRAY In Process Unspecified. EDMS 11:41 No provider procedures requiring assistance completed. eh3 11:41 IV discontinued, intact, bleeding controlled, No redness/swelling at site. Pressure eh3 dressing applied. Administered Medications: 10:52 Drug: NS 0.9% IV 1000 ml Route: IV; Rate: 1000 ml; Site: right antecubital; eh3 11:42 Follow up: IV Status: Completed infusion; IV Intake: 500ml eh3 10:55 Drug: Ibuprofen PO 400 mg Route: PO; eh3 11:42 Follow up: Response: No adverse reaction eh3 Medication: 11:41 VIS not applicable for this client. eh3 Intake: 11:42 IV: 500ml; Total: 500ml. eh3 Outcome: 11:29 Discharge ordered by . ms3 11:41 Discharged to home ambulatory, with family. eh3 11:41 Condition: stable 11:41 Discharge instructions given to patient, Instructed on discharge instructions, follow up and referral plans. medication usage, Demonstrated understanding of instructions, follow-up care, medications, Prescriptions given X 1. 11:53 Patient left the ED. eh3 Signatures: Dispatcher [employer] EDMS Luanne Dent RN RN ss Belen Hall rg4 Yair Fontenot DO DO ms3 Margo Menchaca, NING RN eh3 Corrections: (The following items were deleted from the chart) 10: 09:38 Pain: Complains of pain in abdomen eh3 eh3 10: 09:38 GI: Abdomen is round non-distended, Bowel sounds present X 4 quads. Abd is soft X eh3 4 quads Abdomen is tender to palpation in right lower quadrant and left lower quadrant eh3 09:38 : Denies burning with urination, eh3 eh3
--- NOTE | 2022-12-16 11:29 | EDPHYS ---
Physician Documentation [facility] Name: Alaina Hernandez Age: 67 yrs Sex: Female : 1955 Arrival Date: 12/16/2022 Time: 09:26 Bed 18 Private MD: ED Physician Yair Fontenot HPI: 12/16 11:47 This 67 yrs old Female presents to ER via Ambulatory with complaints of ms3 Urinary Problem, Abdominal Pain, Low Back Pain, Headache, Dizziness. 11:47 67-year-old female with past medical history of GERD presents for 1 week of pulsations ms3 in the right backside of her head, dizziness and confusion. Patient also notes she has frequent urination and has had abdominal swelling for months. Patient states has been taking Tylenol without relief. Patient states her discomfort is moderate. Patient denies alleviating or inciting factors. Historical: - Allergies: 09:34 Aspirin; ss 09:34 Iodine; ss 09:34 shrimp, peanuts,; ss 09:34 SHELLFISH; ss - PMHx: 09:34 "my stomach feels swollen for months, bad stomach"; GERD; prolapsed uterus; ss - Immunization history:: Client reports receiving the Andres \\T\\ Andres single-dose vaccine. - Social history:: Smoking status: Patient denies any tobacco usage or history of. ROS: 11:47 Constitutional: Negative for fever, and chills. Neck: Negative for injury, pain, and ms3 swelling, Cardiovascular: Negative for chest pain, and palpitations. Respiratory: Negative for shortness of breath, cough, wheezing, and pleuritic chest pain. 11:47 MS/Extremity: Negative for injury and deformity, Skin: Negative for injury, rash, and discoloration. 11:47 Abdomen/GI: Positive for abdominal pain. 11:47 Neuro: Positive for headache. 11:47 All other systems are negative. Exam: 11:46 ECG was reviewed by the Attending Physician. ms3 11:47 Constitutional: This is a well developed, well nourished patient who is awake, alert, ms3 and in no acute distress. Head/Face: Normocephalic, atraumatic. Neck: Trachea midline, no cervical lymphadenopathy. Supple, full range of motion without nuchal rigidity, or vertebral point tenderness. No Meningismus. Chest/axilla: Normal chest wall appearance and motion. Nontender with no deformity. Cardiovascular: Regular rate and rhythm with a normal S1 and S2. No gallops, murmurs, or rubs. Normal PMI, no JVD. No pulse deficits. Respiratory: Lungs have equal breath sounds bilaterally, clear to auscultation and percussion. No rales, rhonchi or wheezes noted. No increased work of breathing, no retractions or nasal flaring. Abdomen/GI: Soft, non-tender, with normal bowel sounds. No distension or tympany. No guarding or rebound. No evidence of tenderness throughout. Skin: Warm, dry with normal turgor. Normal color with no rashes, no lesions, and no evidence of cellulitis. MS/ Extremity: Pulses equal, no cyanosis. Neurovascular intact. Full, normal range of motion. Neuro: Awake and alert, GCS 15, oriented to person, place, time, and situation. Cranial nerves II-XII grossly intact. Motor strength 5/5 in all extremities. Sensory grossly intact. Cerebellar exam normal. Normal gait. Vital Signs: 09:34 BP 145 / 90; Pulse 76; Resp 17; Temp 98.4(TE); Pulse Ox 99% on R/A; Weight 62.6 kg; ss Height 5 ft. 2 in. ; Pain 10/10; 10:30 BP 129 / 64; Pulse 75; Resp 18; Pulse Ox 100% on R/A; eh3 11:30 BP 122 / 98; Pulse 65; Resp 18; Pulse Ox 100% on R/A; eh3 09:34 Body Mass Index 25.24 (62.60 kg, 157.48 cm) ss 09:34 Pain Scale: Adult ss MDM: 09:51 Patient medically screened. ms3 11:47 Differential diagnosis: UTI, Headache vs Mass. Data reviewed: vital signs, nurses ms3 notes, lab test result(s), radiologic studies, and as a result, I will discharge patient. I considered the following discharge prescriptions or medication management in the emergency department Medications were administered in the Emergency Department. See MAR. Independent interpretation of the following test(s) in the Emergency Department EKG: See my EKG interpretation above. Counseling: I had a detailed discussion with the patient and/or guardian regarding: the historical points, exam findings, and any diagnostic results supporting the discharge/admit diagnosis, lab results, radiology results, the need for outpatient follow up, to return to the emergency department if symptoms worsen or persist or if there are any questions or concerns that arise at home. Response to treatment: the patient's symptoms have mildly improved after treatment, and as a result, I will discharge patient. Special discussion: I discussed with the patient/guardian in detail that at this point there is no indication for admission to the hospital. It is understood, however, that if the symptoms persist or worsen the patient needs to return immediately for re-evaluation. 12/16 09:53 Order name: CBC with Diff; Complete Time: 10:50 ms3 12/16 09:53 Order name: BMP; Complete Time: 10:50 ms3 12/16 09:53 Order name: Urinalysis w/ reflexes; Complete Time: 10:50 ms3 12/16 09:53 Order name: CT Head Brain wo Cont; Complete Time: 11:18 ms3 12/16 09:53 Order name: CXR XRAY; Complete Time: 11:18 ms3 12/16 10:27 Order name: Abdomen ; Complete Time: 11:18 EDMS 12/16 09:53 Order name: EKG; Complete Time: 09:53 ms3 12/16 09:53 Order name: EKG - Nurse/Tech; Complete Time: 10:09 ms3 EC:46 Rate is 69 beats/min. Rhythm is regular. QRS [place] is Normal. ID interval is normal. QRS ms3 interval is normal. Clinical impression: Normal ECG. Interpreted by me. Reviewed by me. Administered Medications: 10:52 Drug: NS 0.9% IV 1000 ml Route: IV; Rate: 1000 ml; Site: right antecubital; 3 11:42 Follow up: IV Status: Completed infusion; IV Intake: 500ml 3 10:55 Drug: Ibuprofen PO 400 mg Route: PO; 3 11:42 Follow up: Response: No adverse reaction eh3 Disposition Summary: 12/16/22 11:29 Discharge Ordered Location: Home ms3 Condition: Stable ms3 Diagnosis - Hematuria, unspecified ms3 - Dizziness and giddiness ms3 - Pelvic Discomfort ms3 Discharge Instructions: - Discharge Summary Sheet ms3 - Dizziness ms3 - Hematuria, Adult ms3 Forms: - Medication Reconciliation Form ms3 - Thank You Letter ms3 - Antibiotic Education ms3 - Prescription Opioid Use ms3 - [email or web address] ms3 Prescriptions: - Fioricet 50-300-40 mg Oral capsule - take 1 capsule by ORAL route every 4 hours as needed for pain; 18 capsule; ms3 Refills: 0, Product Selection Permitted Signatures: Dispatcher [employer] EDMS Luanne Dent, NING RN ss Yair Fontenot, DO ms3 Margo Menchaca RN RN eh3 Corrections: (The following items were deleted from the chart) 10:27 10:07 Abdomen Pelvis W Con+[email or web address].BRZ ordered. EDMS EDMS
[2022-12-16 12:07] VITALS: TEMP 98.4
[2022-12-16 12:09] VITALS: O2SAT 100
[2022-12-16 12:11] VITALS: BP 122/98
--- NOTE | 2022-12-18 11:20 | EKG ---
Test Date: 2022-12-16 Test Time: 10:10:43 Jewel Setter: PHYLLIS MEASUREMENT RESULTS: Intervals: Rate: 69 WI: 158 QRSD: 82 QT: 384 QTc: 411 [place]: P: 29 WI: 158 QRS: -1 T: 13 INTERPRETIVE STATEMENTS: Normal sinus rhythm Normal ECG Compared to ECG 10/18/2012 09:43:32 Sinus arrhythmia no longer present Electronically Signed On 12-18-22 11:17:43 CDT by Bismark Herrera
== END 2022-12-16 11:53 | disposition home or self-care (01) ==
LOC: ER 09:26
DX: R31.9 Hematuria, unspecified (principal); R10.2 Pelvic and perineal pain; R42 Dizziness and giddiness; Z88.6 Allergy status to analgesic agent; Z91.010 Allergy to peanuts; Z91.013 Allergy to seafood; Z91.048 Other nonmedicinal substance allergy status
CPT/HCPCS: 93005; 85025; 81001; 80048; 36415; 70450; 74176; 71045; 96360; 99284; J7030

== ENCOUNTER → 2023-06-28 | Emergency (ER) | payer OTHER ==
[2023-06-28 09:44] LABS: Specific Gravity 1.022 (1.005-1.030); Urine Bacteria None Seen /HPF (<20); Urine Bilirubin NEGATIVE (Negative); Urine Blood Trace (Negative); Urine Clarity Clear (Clear); Urine Color Light-Yellow (Yellow); Urine Glucose NEGATIVE (Negative); Urine Mucus 1+ /HPF (None Seen); Urine Protein NEGATIVE (Negative); Urine Urobilinogen Normal (Normal)
[2023-06-28 09:48] LABS: Absolute Lymphocytes (CBC) 1.9 K/uL (0.7-4.9); Hematocrit 38.9 % (36.0-45.0); Lymphocytes % 38.7 % (15.3-44.8); MCV 87.2 fL (80-100); MPV 7.1 fL (7.6-11.3); Platelets 325 thou/uL (152-406); RBC Red Blood Cell Count 4.47 M/uL (3.86-4.86)
--- NOTE | 2023-06-28 10:02 | RAD REPORT ---
EXAM DESCRIPTION: CT - Abdomen Pelvis Wo Contrast - 06/28/2023 9:28 am CLINICAL HISTORY: FLANK PAIN COMPARISON: Abdomen Pelvis Wo Contrast dated 12/16/2022; Stone Protocol dated 12/03/2016; Abdomen Pelvis Wo Contrast dated 03/16/2016; CT ABDOMEN PELVIS WO CONTRAST dated 06/09/2010 TECHNIQUE: Thin cut axial CT imaging of the abdomen and pelvis was performed without IV contrast. Mu ltiplanar reformats were generated and reviewed. All CT scans are performed using dose optimization technique as appropriate and may include automated exposure control or mA/KV adjustment according to patient size. FINDINGS: No suspicious findings in the lung bases. The liver, spleen, adrenal glands, and pancreas show no suspicious findings. Gallbladder was surgical ly removed. Symmetric renal contour, without suspicious parenchymal findings within limits of noncontrast techniq ue. No evidence of radiopaque calculi or hydroureteronephrosis. No dilated bowel loops or bowel wall thickening. No free air, free fluid or inflammatory stranding. N o hernia, mass or bulky lymphadenopathy. The urinary bladder is decompressed limiting evaluation. No suspicious bony findings. IMPRESSION: No acute intra-abdominal process.
[2023-06-28 10:04] LABS: Albumin 3.5 g/dL (3.4-5.0); Bilirubin Total 0.3 mg/dL (0.2-1.0); Protein, Total 7.4 g/dL (6.4-8.2)
--- NOTE | 2023-06-28 10:07 | EDPHYS ---
Physician Documentation [facility] Name: Alaina Hernandez Age: 67 yrs Sex: Female : 1955 Arrival Date: 06/28/2023 Time: 09:04 Bed 4 Private MD: ED Physician Jasper Andrews HPI: 06/28 09:22 This 67 yrs old Female presents to ER via Ambulatory with complaints of sp3 Abdominal Pain, Low Back Pain. 09:22 67-year-old female with history of GERD, prior UTIs now presents to the ED with chief sp3 complaint left lower quadrant abdominal pain radiating around to her left flank. Patient just got off a cruise on June 11, 2023 and states that just prior to the cruise she has been recovering from COVID-19. She continues to have a dry cough. Regarding her abdominal symptoms, she denies any gross hematuria, urinary frequency, dysuria, or any other signs or symptoms from a standpoint. Review of systems is negative for headache, neck pain, chest pain, shortness of breath, upper back pain, bleeding, muscle aches, fever, or any other signs or symptoms. Patient is concerned about possible kidney stone and pancreatitis based on her report.. Historical: - Allergies: 09:13 SHELLFISH; ll1 09:13 Iodine; ll1 09:13 Aspirin; ll1 09:13 shrimp; ll1 - PMHx: 09:13 GERD; prolapsed uterus; ll1 - Immunization history:: Adult Immunizations up to date. - Social history:: Smoking status: Patient denies any tobacco usage or history of. ROS: 09:24 Constitutional: Negative for fever, chills, and weight loss, Eyes: Negative for injury, sp3 pain, redness, and discharge, ENT: Negative for injury, pain, and discharge, Neck: Negative for injury, pain, and swelling, Cardiovascular: Negative for chest pain, palpitations, and edema, MS/Extremity: Negative for injury and deformity, Skin: Negative for injury, rash, and discoloration, Neuro: Negative for headache, weakness, numbness, tingling, and seizure, Psych: Negative for depression, anxiety, suicide ideation, homicidal ideation, and hallucinations, Allergy/Immunology: Negative for hives, rash, and allergies, Endocrine: Negative for neck swelling, polydipsia, polyuria, polyphagia, and marked weight changes, Hematologic/Lymphatic: Negative for swollen nodes, abnormal bleeding, and unusual bruising, 09:24 All other systems are negative, Exam: 09:24 Constitutional: This is a well developed, well nourished patient who is awake, alert, sp3 and in no acute distress. Head/Face: Normocephalic, atraumatic. Eyes: Pupils equal round and reactive to light, extra-ocular motions intact. Lids and lashes normal. Conjunctiva and sclera are non-icteric and not injected. Cornea within normal limits. Periorbital areas with no swelling, redness, or edema. ENT: Nares patent. No nasal discharge, no septal abnormalities noted. External auditory canals are clear. Oropharynx with no redness, swelling, or masses, exudates, or evidence of obstruction, uvula midline. Mucous membranes moist. Neck: Trachea midline, no thyromegaly or masses palpated, and no cervical lymphadenopathy. Supple, full range of motion without nuchal rigidity, or vertebral point tenderness. No Meningismus. Chest/axilla: Normal chest wall appearance and motion. Nontender with no deformity. No lesions are appreciated. Cardiovascular: Regular rate and rhythm with a normal S1 and S2. No gallops, murmurs, or rubs. Normal PMI, no JVD. No pulse deficits. Respiratory: Lungs have equal breath sounds bilaterally, clear to auscultation and percussion. No rales, rhonchi or wheezes noted. No increased work of breathing, no retractions or nasal flaring. Back: No spinal tenderness. No costovertebral tenderness. Full range of motion. Skin: Warm, dry with normal turgor. Normal color with no rashes, no lesions, and no evidence of cellulitis. MS/ Extremity: Pulses equal, no cyanosis. Neurovascular intact. Full, normal range of motion. Neuro: Awake and alert, GCS 15, oriented to person, place, time, and situation. Cranial nerves II-XII grossly intact. Motor strength 5/5 in all extremities. Sensory grossly intact. Cerebellar exam normal. Normal gait. Psych: Awake, alert, with orientation to person, place and time. Behavior, mood, and affect are within normal limits. 09:24 Abdomen/GI: Mild pain left lower quadrant without peritoneal signs, rebound or guarding., Vital Signs: 09:14 BP 144 / 80; Pulse 73; Resp 16; Temp 97; Pulse Ox 95% on R/A; Weight 60.33 kg; Height 5 ll1 ft. 2 in. ; Pain 10/10; 09:20 BP 144 / 80; Pulse 64; Resp 18; Pulse Ox 97% on R/A; Pain 7/10; ld1 10:18 BP 136 / 78; Pulse 70; Resp 15; Pulse Ox 100% ; ko1 09:14 Body Mass Index 24.33 (60.33 kg, 157.48 cm) ll1 09:14 Pain Scale: Adult ll1 09:20 Pain Scale: Adult ld1 MDM: 09:12 Patient medically screened. sp3 09:24 Data reviewed: vital signs, nurses notes, lab test result(s), radiologic studies. ED sp3 course: 67-year-old female with left lower quadrant abdominal pain. Differential diagnosis includes kidney stone, diverticulitis, UTI, early pyelonephritis, other or DIRECT CARE PROFESSIONAL pathology, among others. Workup will include laboratory values, urine analysis, CT scan of the abdomen pelvis noncontrast and a kidney stone protocol. Patient declined any medications at this time and wants to await workup before any intervention. Disposition pending workup and patient course with probable discharge.. 10:06 ED course: Complete negative workup. We will treat as MSK and administer diclofenac sp3 p.o. as needed with PCP follow-up.. 06/28 09:18 Order name: CBC with Diff; Complete Time: 10:05 sp3 06/28 09:18 Order name: CMP; Complete Time: 10:05 sp3 06/28 09:18 Order name: Lipase; Complete Time: 10:05 sp3 06/28 09:18 Order name: Urinalysis w/ reflexes; Complete Time: 10:05 sp3 06/28 09:18 Order name: CT Abd/Pelvis - Without Contrast; Complete Time: 10:05 sp3 06/28 09:18 Order name: IV Saline Lock; Complete Time: 09:44 sp3 06/28 09:18 Order name: Labs collected and sent; Complete Time: 09:44 sp3 Administered Medications: No medications were administered Disposition Summary: 06/28/23 10:07 Discharge Ordered Notes: Location: Home sp3 Condition: Stable sp3 Diagnosis - Flank pain, low back pain sp3 Followup: sp3 - With: Private Physician - When: Upon discharge from the Emergency Department - Reason: Continuance of care Discharge Instructions: - Discharge Summary Sheet sp3 - Acute Back Pain, Adult sp3 Forms: - Medication Reconciliation Form sp3 - Thank You Letter sp3 - Antibiotic Education sp3 - Prescription Opioid Use sp3 - Patient Portal Instructions sp3 - Leadership Thank You Letter sp3 Prescriptions: - Diclofenac Sodium 75 mg Oral Tablet Sustained Release - take 1 tablet ORAL route 2 times per day; 30 tablet; Refills: 0, Product sp3 Selection Permitted Signatures: Dispatcher [employer] Kike Gaviria RN RN ll1 Jasper Andrews MD MD sp3
--- NOTE | 2023-06-28 10:07 | ER ---
Nurse's Notes [facility] Name: Alaina Hernandez Age: 67 yrs Sex: Female : 1955 Arrival Date: 06/28/2023 Time: 09:04 Bed 4 Private MD: Diagnosis: Flank pain, low back pain Presentation: 06/28 09:14 Chief complaint: Patient states: Cough with phlegm for 2 months. Abdominal bloating and ll1 low back pain for over 6 months. Dysuria with urinary frequency at night. Coronavirus screen: Vaccine status: Patient reports receiving the 1st dose of the Covid vaccine. Client denies travel out of the [place] in the last 14 days. cough unrelated to allergies, fatigue, Client presents with at least one sign or symptom that may indicate coronavirus-19. Standard/surgical mask placed on the client. Ebola Screen: Patient denies travel to an Ebola-affected area in the 21 days before illness onset. Initial Sepsis Screen: Does the patient meet any 2 criteria? No. Patient's initial sepsis screen is negative. Does the patient have a suspected source of infection? Yes: Acute abdominal pain. Risk Assessment: Do you want to hurt yourself or someone else? Patient reports no desire to harm self or others. Onset of symptoms was April 19, 2023. 09:14 Method Of Arrival: Ambulatory ll1 09:14 Acuity: GABRIELLE 3 ll1 Triage Assessment: 09:18 General: Appears uncomfortable, Behavior is calm, cooperative, appropriate for age. ll1 Pain: Complains of pain in abdomen Pain currently is 10 out of 10 on a pain scale. Quality of pain is described as aching, crampy. Respiratory: Reports cough that is. GI: Reports lower abdominal pain, bloating, cramping. : Reports burning with urination, urinary frequency. Musculoskeletal: Reports pain in low back. Historical: - Allergies: 09:13 SHELLFISH; ll1 09:13 Iodine; ll1 09:13 Aspirin; ll1 09:13 shrimp; ll1 - PMHx: 09:13 GERD; prolapsed uterus; ll1 - Immunization history:: Adult Immunizations up to date. - Social history:: Smoking status: Patient denies any tobacco usage or history of. Screenin:20 [facility] ED Fall Risk Assessment (Adult) History of falling in the last 3 months, ld1 including since admission No falls in past 3 months (0 pts). Abuse screen: Denies threats or abuse. Denies injuries from another. Nutritional screening: No deficits noted. Tuberculosis screening: No symptoms or risk factors identified. Assessment: 09:20 General: Appears in no apparent distress. comfortable, Behavior is calm, cooperative, ld1 appropriate for age. Pain: Complains of pain in abdomen Pain radiates to abdomen Pain currently is 7 out of 10 on a pain scale. Quality of pain is described as sharp, shooting, throbbing. Neuro: Level of Consciousness is awake, alert, obeys commands, Oriented to person, place, time, situation. Cardiovascular: Capillary refill < 3 seconds Patient's skin is warm and dry. Respiratory: Airway is patent Respiratory effort is even, unlabored. GI: Abdomen is round non-distended, Bowel sounds present X 4 quads. Abd is soft Abdomen is tender to palpation X 4 quads. : No signs and/or symptoms were reported regarding the genitourinary system. EENT: No signs and/or symptoms were reported regarding the EENT system. Derm: No signs and/or symptoms reported regarding the dermatologic system. Musculoskeletal: No signs and/or symptoms reported regarding the musculoskeletal system. Vital Signs: 09:14 BP 144 / 80; Pulse 73; Resp 16; Temp 97; Pulse Ox 95% on R/A; Weight 60.33 kg; Height 5 ll1 ft. 2 in. ; Pain 10/10; 09:20 BP 144 / 80; Pulse 64; Resp 18; Pulse Ox 97% on R/A; Pain 7/10; ld1 10:18 BP 136 / 78; Pulse 70; Resp 15; Pulse Ox 100% ; ko1 09:14 Body Mass Index 24.33 (60.33 kg, 157.48 cm) ll1 09:14 Pain Scale: Adult ll1 09:20 Pain Scale: Adult ld1 ED Course: 09:06 Patient arrived in ED. im 09:10 Jasper Andrews MD is Attending Physician. sp3 09:13 Arm band placed on. ll1 09:13 Patient placed in an exam room, on a stretcher. ll1 09:18 Triage completed. ll1 09:20 Patient has correct armband on for positive identification. Placed in gown. Bed in low ld1 position. Call light in reach. Side rails up X2. desk monitor on. Pulse ox on. NIBP on. Door closed. Noise minimized. Warm blanket given. 09:20 No provider procedures requiring assistance completed. ld1 09:21 Che Fontenot, RN is Primary Nurse. ld1 09:28 CT Abd/Pelvis - Without Contrast In Process Unspecified. EDMS 09:40 Initial lab(s) drawn, by me, sent to lab. Urine collected: clean catch specimen, clear. aw1 Inserted saline lock: 20 gauge in left antecubital area, using aseptic technique. 09:44 CBC with Diff Sent. aw1 09:44 CMP Sent. aw1 09:44 Lipase Sent. aw1 10:18 Provided Education on: na. ko1 10:18 IV discontinued, intact, bleeding controlled, No redness/swelling at site. Pressure ko1 dressing applied. Administered Medications: No medications were administered Medication: 09:20 VIS not applicable for this client. ld1 Outcome: 10:07 Discharge ordered by . sp3 10:18 Discharged to home ambulatory, ko1 10:18 Condition: stable 10:18 Discharge instructions given to patient, Instructed on discharge instructions, follow up and referral plans. medication usage, Demonstrated understanding of instructions, follow-up care, medications, Prescriptions given X 1, 10:19 Patient left the ED. ko1 Signatures: Dispatcher [employer] Kike Gaviria, RN RN ll1 Che Fontenot, RN RN ld1 Jasper Andrews MD MD sp3 Shirin Arevalo RN RN ko1 Lexi Lazo Alyssa aw1
[2023-06-28 10:39] VITALS: TEMP 97
[2023-06-28 10:51] VITALS: BP 136/78; O2SAT 100
== END ==
LOC: ER 09:04
DX: R10.32 Left lower quadrant pain (principal); M54.50 Low back pain, unspecified; Z88.6 Allergy status to analgesic agent; Z91.013 Allergy to seafood; Z91.048 Other nonmedicinal substance allergy status
CPT/HCPCS: 36415; 74176; 80053; 81001; 83690; 85025; 99284

== ENCOUNTER → 2023-08-11 | Emergency (ER) | payer OTHER ==
--- NOTE | 2023-08-11 11:04 | RAD REPORT ---
EXAM DESCRIPTION: CT - Head Brain Wo Cont - 08/11/2023 10:59 am CLINICAL HISTORY: headache, factor V leiden Headache, drowsiness COMPARISON: Head Brain Wo Cont dated 12/16/2022 TECHNIQUE: All CT scans are performed using dose optimization technique as appropriate and may inclu de automated exposure control or mA/KV adjustment according to patient size. FINDINGS: No intracranial hemorrhage, hydrocephalus or extra-axial fluid collection.Mild generalized brain atrophy is present. Benign calcifications are present bilaterally, unchanged.No areas of brain edema or evidence of midline shift. Chronic right maxillary sinusitis. The paranasal sinuses and mastoids otherwise clear. The calvarium is intact. IMPRESSION: No acute intracranial abnormality.
[2023-08-11 11:37] LABS: Absolute Lymphocytes (CBC) 2.4 K/uL (0.7-4.9); Hematocrit 38.7 % (36.0-45.0); Lymphocytes % 50.1 % (15.3-44.8); MCV 86.6 fL (80-100); MPV 7.9 fL (7.6-11.3); Platelets 278 thou/uL (152-406); RBC Red Blood Cell Count 4.48 M/uL (3.86-4.86)
[2023-08-11 11:58] LABS: Potassium 3.9 mEq/L (3.5-5.1); Troponin High Sensitivity 5.6 pg/mL (<58.9)
--- NOTE | 2023-08-11 12:32 | RAD REPORT ---
EXAM DESCRIPTION: US - Extrem Venous W Compress Ollie - 08/11/2023 12:22 pm CLINICAL HISTORY: PAIN Bilateral leg edema and swelling. COMPARISON: No comparisons TECHNIQUE: Real-time sonographic interrogation of the left and right lower extremity deep venous sys tems was performed. FINDINGS: Normal compressibility, flow augmentation, phasic flow and spontaneous flow is identified in both the left and right lower extremity deep venous systems. IMPRESSION: No sonographic evidence of left or right lower extremity deep venous thrombosis.
--- NOTE | 2023-08-11 12:33 | RAD REPORT ---
EXAM DESCRIPTION: US - Lower Extremity Arterial Bilat - 08/11/2023 12:10 pm CLINICAL HISTORY: PAIN COMPARISON: No comparisons TECHNIQUE: Bilateral lower extremity arterial Doppler examination was performed with waveform tracin g and velocity measurements. FINDINGS: Triphasic and biphasic waveforms are seen throughout both lower extremity arterial systems to the lev el of the dorsalis pedis arteries. No high-grade stenosis or occlusion is seen. IMPRESSION: No evidence of significant peripheral vascular disease.
--- NOTE | 2023-08-11 12:44 | RAD REPORT ---
EXAM DESCRIPTION: RAD - Hand Right 3 View - 08/11/2023 12:36 pm CLINICAL HISTORY: ANIMAL BITE COMPARISON: No comparisons FINDINGS: No fracture, dislocation or radiopaque foreign body seen. No soft tissue gas is evident.
--- NOTE | 2023-08-11 13:27 | EDPHYS ---
Physician Documentation [facility] Name: Alaina Hernandez Age: 67 yrs Sex: Female : 1955 Arrival Date: 08/11/2023 Time: 10:19 Bed 4 Private MD: ED Physician Carlitos Grimes HPI: 08/11 11:07 This 67 yrs old Female presents to ER via Ambulatory with complaints of Leg rn Pain, Headache. 11:07 The patient presents with pain, that is acute. rn 11:07 The complaints affect the left calf, right calf. Onset: The symptoms/episode rn began/occurred yesterday. Modifying factors: The symptoms are alleviated by nothing. the symptoms are aggravated by nothing. Associated signs and symptoms: Pertinent negatives fever, swelling, tingling, vomiting, warmth, weakness. Severity of symptoms: At their worst the symptoms were moderate, in the emergency department the symptoms have improved. The patient has not experienced similar symptoms in the past. Patient reports since yesterday has been experiencing left and right calf pain. No trauma. No injury. Reports concerned because of history of factor V leiden. No hx of dvt/PE. Also reports headache that is concerning her. No hx of aneurysm in patient but family with hx of aneurysm. NO head trauma. Also reports bite to right hand a week ago and still a little swollen. . Historical: - Allergies: 10:47 Aspirin; ll1 10:47 Iodine; ll1 10:47 SHELLFISH; ll1 10:47 shrimp; ll1 - PMHx: 10:47 GERD; prolapsed uterus; ll1 - Immunization history:: Adult Immunizations up to date. - Social history:: Smoking status: Patient denies any tobacco usage or history of. - Family history:: not pertinent. - Hospitalizations: : No recent hospitalization is reported. ROS: 11:07 Constitutional: Negative for fever, chills, and weight loss, Eyes: Negative for injury, rn pain, redness, and discharge, Neck: Negative for injury, pain, and swelling, Cardiovascular: Negative for chest pain, palpitations, and edema, Respiratory: Negative for shortness of breath, cough, wheezing, and pleuritic chest pain, Abdomen/GI: Negative for abdominal pain, nausea, vomiting, diarrhea, and constipation, Back: Negative for injury and pain, MS/Extremity: + bilateral leg pain Skin: Negative for injury, rash, and discoloration, Neuro: + headache Exam: 11:07 Constitutional: This is a well developed, well nourished patient who is awake, alert, rn and in no acute distress. Ambulatory to room without difficulty or assistance Head/Face: Normocephalic, atraumatic. Cardiovascular: Regular rate and rhythm. No pulse deficits. Respiratory: Speaking full sentences, unlabored. No increased work of breathing, no retractions or nasal flaring. MS/ Extremity: Pulses equal, no cyanosis. Neurovascular intact. Full, normal range of motion. Equal circumference. Neuro: Awake and alert, GCS 15, oriented to person, place, time, and situation. Cranial nerves II-XII grossly intact. Motor strength 5/5 in all extremities. Sensory grossly intact. Cerebellar exam normal. Normal gait. Vital Signs: 10:53 BP 131 / 74; Pulse 84; Resp 18; Temp 98.1(TE); Pulse Ox 100% on R/A; Weight 62.14 kg; ld1 Height 5 ft. 4 in. ; Pain 6/10; 12:42 BP 137 / 71; Pulse 64; Resp 18; Pulse Ox 100% on R/A; Pain 8/10; ld1 10:53 Body Mass Index 23.52 (62.14 kg, 162.56 cm) ld1 10:53 Pain Scale: Adult ld1 12:42 Pain Scale: Adult ld1 MDM: 10:31 Patient medically screened. rn 13:25 Differential diagnosis: DVT, CVA, radiculopathy, neuropathy, peripheral vascular rn disease. Data reviewed: vital signs, nurses notes, lab test result(s), radiologic studies, CT scan, plain films, ultrasound, and as a result, I will discharge patient. Counseling: I had a detailed discussion with the patient and/or guardian regarding the historical points, exam findings, and any diagnostic results supporting the discharge/admit diagnosis, lab results, radiology results, the need for outpatient follow up, to return to the emergency department if symptoms worsen or persist or if there are any questions or concerns that arise at home. Special discussion: I discussed with the patient/guardian in detail that at this point there is no indication for admission to the hospital. It is understood, however, that if the symptoms persist or worsen the patient needs to return immediately for re-evaluation. ED course: No acute findings and workup here. Specifically no DVT or arterial occlusion. CT head negative. Chest x-ray negative. Will DC home with return precautions. I have personally reviewed all of the results, including but not limited to blood tests and imaging deemed necessary to safely discharge this patient at this time. All results given to and printed out for patient. I personally went over all the results with the patient and answered all questions. Patient will follow-up with PCP and or specialist as discussed. Return precautions given and understood.. 08/11 10:40 Order name: Basic Metabolic Panel; Complete Time: 13:03 08/11 10:40 Order name: CBC with Diff; Complete Time: 11:47 08/11 10:40 Order name: PT-INR; Complete Time: 11:47 08/11 10:40 Order name: Troponin HS; Complete Time: 13:03 08/11 10:40 Order name: CT Head Brain wo Cont; Complete Time: 11:47 08/11 10:40 Order name: Extrem Venous W Compression Ollie US; Complete Time: 13:03 08/11 10:40 Order name: Lower Extremity Arterial Bilat US; Complete Time: 13:03 08/11 10:42 Order name: XRAY Hand RIGHT 3 View; Complete Time: 13:03 08/11 10:40 Order name: EKG; Complete Time: 10:40 08/11 10:40 Order name: IV Start; Complete Time: 10:57 08/11 10:40 Order name: Cardiac monitoring; Complete Time: 12:41 08/11 10:40 Order name: EKG - Nurse/Tech; Complete Time: 12:41 08/11 10:40 Order name: Labs collected and sent; Complete Time: 10:57 08/11 10:40 Order name: O2 Per Protocol; Complete Time: 10:44 08/11 10:40 Order name: O2 Sat Monitoring; Complete Time: 10:44 ll1 Administered Medications: No medications were administered Disposition Summary: 08/11/23 13:26 Discharge Ordered Notes: Location: Home rn Problem: new rn Symptoms: have improved rn Condition: Stable rn Diagnosis - Pain in left lower leg rn - Pain in right lower leg rn - Headache rn Followup: rn - With: Private Physician - When: As needed - Reason: Recheck today's complaints, Re-evaluation by your physician Discharge Instructions: - Discharge Summary Sheet rn - General Headache Without Cause rn - Hypertension, Adult rn - Pain Without a Known Cause rn Forms: - Medication Reconciliation Form rn - Thank You Letter rn - Antibiotic alternative energy technician - Prescription Opioid Use rn - Patient Portal Instructions rn - Leadership Thank You Letter rn Prescriptions: - gabapentin 300 mg Oral capsule - take 1 capsule ORAL route every 12 hours As needed; 14 capsule; Refills: 0, rn Product Selection Permitted Signatures: Dispatcher [employer] EDCarlitos Tariq MD MD rn Lewis, Lynsay, RN RN ll1 Che Fontenot RN RN ld1 Corrections: (The following items were deleted from the chart) 13:36 13:36 PMHx: "my stomach feels swollen for months, bad stomach"; ld1 ld1
--- NOTE | 2023-08-11 13:27 | ER ---
Nurse's Notes [facility] Name: Alaina Hernandez Age: 67 yrs Sex: Female : 1955 Arrival Date: 08/11/2023 Time: 10:19 Bed 4 Private MD: Diagnosis: Pain in left lower leg;Pain in right lower leg;Headache Presentation: 08/11 10:47 Ebola Screen: Patient denies travel to an Ebola-affected area in the 21 days before ll1 illness onset. 10:47 Method Of Arrival: Ambulatory ll1 10:53 Chief complaint: Patient states: Pain to left lower leg since yesterday. Pt concerned ld1 it is a blood clot. Coronavirus screen: At this time, the client does not indicate any symptoms associated with coronavirus-19. Initial Sepsis Screen: Does the patient meet any 2 criteria? No. Patient's initial sepsis screen is negative. Does the patient have a suspected source of infection? No. Patient's initial sepsis screen is negative. Risk Assessment: Do you want to hurt yourself or someone else? Patient reports no desire to harm self or others. Onset of symptoms was August 11, 2023. 10:53 Acuity: GABRIELLE 3 ld1 Triage Assessment: 10:53 Headache History: Denies prior headaches. General: Appears in no apparent distress. ld1 comfortable, Behavior is calm, cooperative, appropriate for age. Pain: Complains of pain in left leg Pain does not radiate. Pain currently is 6 out of 10 on a pain scale. Quality of pain is described as throbbing, Pain began suddenly. Pain: Also complains of no other associated symptoms. EENT: No signs and/or symptoms were reported regarding the EENT system. Neuro: Level of Consciousness is awake, alert, obeys commands, Oriented to person, place, time, situation. Cardiovascular: Capillary refill < 3 seconds Patient's skin is warm and dry. Respiratory: Airway is patent Respiratory effort is even, unlabored. GI: Abdomen is flat, non-distended. : No signs and/or symptoms were reported regarding the genitourinary system. Derm: No signs and/or symptoms reported regarding the dermatologic system. Musculoskeletal: No signs and/or symptoms reported regarding the musculoskeletal system. Historical: - Allergies: 10:47 Aspirin; ll1 10:47 Iodine; ll1 10:47 SHELLFISH; ll1 10:47 shrimp; ll1 - PMHx: 10:47 GERD; prolapsed uterus; ll1 - Immunization history:: Adult Immunizations up to date. - Social history:: Smoking status: Patient denies any tobacco usage or history of. - Family history:: not pertinent. - Hospitalizations: : No recent hospitalization is reported. Screenin:42 [facility] ED Fall Risk Assessment (Adult) History of falling in the last 3 months, ld1 including since admission No falls in past 3 months (0 pts). Abuse screen: Denies threats or abuse. Denies injuries from another. Nutritional screening: No deficits noted. Tuberculosis screening: No symptoms or risk factors identified. Assessment: 12:42 General: Appears in no apparent distress. comfortable, Behavior is calm, cooperative, ld1 appropriate for age. Pain: Complains of pain in left leg Pain does not radiate. Pain currently is 8 out of 10 on a pain scale. Quality of pain is described as throbbing, Pain began 2-3 days ago. Is continuous. Neuro: Level of Consciousness is awake, alert, obeys commands, Oriented to person, place, time, situation. Cardiovascular: Capillary refill < 3 seconds Patient's skin is warm and dry. Rhythm is sinus rhythm. Respiratory: Airway is patent Respiratory effort is even, unlabored. GI: Abdomen is flat, non-distended. : No signs and/or symptoms were reported regarding the genitourinary system. EENT: No signs and/or symptoms were reported regarding the EENT system. Derm: No signs and/or symptoms reported regarding the dermatologic system. Musculoskeletal: No signs and/or symptoms reported regarding the musculoskeletal system. Vital Signs: 10:53 BP 131 / 74; Pulse 84; Resp 18; Temp 98.1(TE); Pulse Ox 100% on R/A; Weight 62.14 kg; ld1 Height 5 ft. 4 in. ; Pain 6/10; 12:42 BP 137 / 71; Pulse 64; Resp 18; Pulse Ox 100% on R/A; Pain 8/10; ld1 10:53 Body Mass Index 23.52 (62.14 kg, 162.56 cm) ld1 10:53 Pain Scale: Adult ld1 12:42 Pain Scale: Adult ld1 ED Course: 10:23 Patient arrived in ED. rg4 10:31 Carlitos Grimes MD is Attending Physician. rn 10:44 Che Fontenot, NING is Primary Nurse. ld1 10:47 Arm band placed on Patient placed in an exam room, on a stretcher. ll1 10:54 Triage completed. ld1 11:01 CT Head Brain wo Cont In Process Unspecified. EDMS 12:12 Lower Extremity Arterial Bilat US In Process Unspecified. EDMS 12:13 Extrem Venous W Compression Ollie US In Process Unspecified. EDMS 12:38 XRAY Hand RIGHT 3 View In Process Unspecified. EDMS 12:42 Patient has correct armband on for positive identification. Placed in gown. Bed in low ld1 position. Call light in reach. Side rails up X2. monitor car operator on. Pulse ox on. NIBP on. Door closed. Noise minimized. Warm blanket given. 12:42 No provider procedures requiring assistance completed. Inserted saline lock: 20 gauge ld1 in left antecubital area, using aseptic technique. Blood collected. 13:36 Provided Education on: leg pain. ld1 13:36 IV discontinued, intact, bleeding controlled, No redness/swelling at site. ld1 Administered Medications: No medications were administered Medication: 12:42 VIS not applicable for this client. ld1 Outcome: 13:26 Discharge ordered by . rn 13:35 Discharged to home ambulatory, ld1 13:35 Condition: stable 13:35 Discharge instructions given to patient, Instructed on discharge instructions, follow up and referral plans. Demonstrated understanding of instructions, follow-up care, 13:36 Patient left the ED. ld1 Signatures: Dispatcher [employer] EDFL Carlitos Grimes MD MD rn Garcia, Rubi rg4 Kike Restrepo RN RN ll1 Che Fontenot, NING RN ld1 Corrections: (The following items were deleted from the chart) 13:36 13:36 PMHx: "my stomach feels swollen for months, bad stomach"; ld1 ld1
[2023-08-11 13:52] VITALS: BP 137/71; TEMP 98.1; O2SAT 100
--- NOTE | 2023-08-14 14:38 | EKG ---
Test Date: 2023-08-11 Test Time: 12:38:18 Lead Accountant: Chago AVILA MEASUREMENT RESULTS: Intervals: Rate: 61 AL: 174 QRSD: 88 QT: 394 QTc: 396 [place]: P: 0 AL: 174 QRS: 23 T: 50 INTERPRETIVE STATEMENTS: Normal sinus rhythm ST abnormality, possible digitalis effect Abnormal ECG Compared to ECG 12/16/2022 10:10:43 ST (T wave) deviation now present Electronically Signed On 08-14-23 14:29:56 SOIL SORT WORKER by Bismark Herrera
== END ==
LOC: ER 10:19
DX: R51.9 Headache, unspecified (principal); M79.662 Pain in left lower leg; M79.661 Pain in right lower leg; Z88.6 Allergy status to analgesic agent; Z91.013 Allergy to seafood; Z91.048 Other nonmedicinal substance allergy status
CPT/HCPCS: 36415; 70450; 80048; 84484; 85025; 85610; 93005; 93925; 93970

== ENCOUNTER 2025-03-23 14:58 | Emergency (ER) | payer OTHER ==
[2025-03-23] MEDS ORDERED: CEFTRIAXONE 1000 MG/VIAL ONE (16:10)
[2025-03-23] MEDS ORDERED: FAMOTIDINE 20 MG/2 ML VIAL IV ONE (16:10)
[2025-03-23] MEDS ORDERED: MORPHINE 4 MG/ML SYR ONE (16:10)
[2025-03-23] MEDS ORDERED: ONDANSETRON 4 MG/2 ML VIAL ONE (16:10)
[2025-03-23] MEDS ORDERED: NA CHLORIDE 0.9% 1,000 ML ONE (16:11)
[2025-03-23 16:24] LABS: Absolute Lymphocytes (CBC) 2.6 K/uL (0.7-4.9); Hematocrit 39.6 % (36.0-45.0); Hemoglobin 13.4 g/dL (12.0-15.0); MCH 28.9 pg (27.0-35.0); MCHC 33.8 g/dL (32.0-36.0); MCV 85.3 fL (80-100); MPV 7.7 fL (7.6-11.3); Nucleated RBC Absolute Count 0.0 (0-0); Nucleated Red Blood Cells % 0.2 % (0-0); RBC Red Blood Cell Count 4.64 M/uL (3.86-4.86); White Blood Count 6.70 thou/uL (4.3-10.9)
[2025-03-23 16:31] LABS: Sqamous Epithelial <5 /HPF (None Seen); Urine Culture Reflex Order NOT NEEDED; Urine Microscopic Reflex YN ORDER UMIC; Urine Yeast (Budding) Trace /HPF (None Seen)
[2025-03-23 16:55] LABS: ALT/SGPT 23.0 U/L (13-56); AST/SGOT 17.0 U/L (15-37); Albumin 3.4 g/dL (3.4-5.0); Albumin/Globulin Ratio 0.9 (1.1-1.8); Alkaline Phosphatase 72.0 U/L (45-117); Anion Gap 10.0 mEq/L (5.0-15.0); BUN Blood Urea Nitrogen 20.0 mg/dL (7-18); Globulin 3.7 g/dL (2.3-3.5); Glucose Level 96.0 mg/dL (74-106); Lipase 24.0 U/L (13-75); Potassium 4.0 mEq/L (3.5-5.1)
[2025-03-23] MEDS ORDERED: PHENAZOPYRIDINE 100MG TAB PO ONE (16:55)
--- NOTE | 2025-03-23 17:08 | RAD REPORT ---
EXAMINATION: Abdomen Pelvis Wo Contrast CLINICAL INDICATION: Female, 69 years old.Abd pain;Pain TECHNIQUE: CT abdomen and pelvis was performed, without IV contrast, as per department protocol. Axia l, sagittal and coronal reconstructions were obtained. One or more of the following dose reduction techniques were used: Automated exposure control, adjustment of the mA and/or kV according to the pat ient size, and/or iterative reconstruction. Unless otherwise specified, incidental findings do not require dedicated imaging follow-up. [id number]. IV CONTRAST: Not administered. COMPARISON: 06/28/2023 FINDINGS: The lack of intravenous contrast limits the sensitivity of this exam for evaluation of solid visceral organs, vascular structures, and retroperitoneum. LOWER CHEST: No acute process identified. No significant pericardial effusion. UPPER GI: No significant abnormality. LIVER: No significant focal abnormality. GALLBLADDER/BILE DUCTS: Cholecystectomy.? PANCREAS: No mass, ductal dilation, or nuha-pancreatic fluid. SPLEEN: Unremarkable. ADRENALS: No adrenal masses. KIDNEYS AND URETERS: No hydronephrosis. Limited evaluation for renal lesions in the absence of IV con trast. No renal calculi. No ureteral calculi. ABDOMINAL AORTA AND OTHER VESSELS: Normal caliber aorta and IVC. PERITONEUM: No abnormal free fluid. No free air. LYMPH NODES: No pathologic lymphadenopathy. ABDOMINAL WALL: Unremarkable SMALL BOWEL/COLON: Small bowel has normal course and caliber. No colonic wall thickening or pericolon ic inflammatory changes. Nonvisualized appendix but no secondary signs of acute appendicitis. URINARY BLADDER: Underdistended but grossly unremarkable. REPRODUCTIVE ORGANS: No pathologic process. MUSCULOSKELETAL: No acute or suspicious osseous abnormality. ADDITIONAL FINDINGS: None. IMPRESSION: No acute findings within the abdomen or pelvis.
--- NOTE | 2025-03-23 17:19 | ER ---
Nurse's Notes [facility] Name: Alaina Hernandez Age: 69 yrs Sex: Female : 1955 Arrival Date: 03/23/2025 Time: 14:58 Bed 16 Private MD: Diagnosis: Dysuria;UTI/ Urinary tract infection, site not specified;Lower abdominal pain, unspecified Presentation: 03/23 15:45 Chief complaint: Patient states: LOWER ABDOMINAL PRESSURE AND BLADDER PRESSURE X 1 db WEEK. STATES GETS UP OFTEN TO URINATE. Coronavirus screen: Client denies travel out of the [place] in the last 14 days. At this time, the client does not indicate any symptoms associated with coronavirus-19. Ebola Screen: Patient negative for fever greater than or equal to 101.5 degrees Fahrenheit, and additional compatible Ebola Virus Disease symptoms Patient denies exposure to infectious person. Patient denies travel to an Ebola-affected area in the 21 days before illness onset. No symptoms or risks identified at this time. Initial Sepsis Screen: Does the patient meet any 2 criteria? No. Patient's initial sepsis screen is negative. Does the patient have a suspected source of infection? No. Patient's initial sepsis screen is negative. Risk Assessment: Do you want to hurt yourself or someone else? Patient reports no desire to harm self or others. Onset of symptoms was March 23, 2025. 15:45 Method Of Arrival: Ambulatory db 15:45 Acuity: GABRIELLE 3 db Triage Assessment: 15:46 General: Appears in no apparent distress. uncomfortable, Behavior is calm, cooperative. db Pain: Complains of pain in abdomen and pelvis. Neuro: Level of Consciousness is awake, alert, obeys commands, Oriented to person, place, time, situation. Respiratory: Airway is patent Respiratory effort is even, unlabored, Respiratory pattern is regular, symmetrical. GI: Abdomen is non-distended. : Reports inability to void, urgency. Historical: - Allergies: 15:46 Aspirin; db 15:46 Iodine; db 15:46 SHELLFISH; db - PMHx: 15:46 GERD; prolapsed uterus; db - PSHx: 15:46 Cholecystectomy; hysterectomy; db - Immunization history:: Adult Immunizations unknown. - Infectious Disease History:: Denies. - Social history:: Smoking status: Patient denies any tobacco usage or history of. - Family history:: not pertinent. Screenin:00 [facility] ED Fall Risk Assessment (Adult) History of falling in the last 3 months, kj2 including since admission No falls in past 3 months (0 pts) Confusion or Disorientation No (0 pts) Intoxicated or Sedated No (0 pts) Impaired Gait No (0 pts) Mobility Assist Device Used No (0 pt) Altered Elimination No (0 pt) Score/Fall Risk Level 0 - 2 = Low Risk Maintained a safe environment, Hourly rounding (assess needs \T\ fall precautionary measures) done. Abuse screen: Denies threats or abuse. Denies injuries from another. Nutritional screening: No deficits noted. Tuberculosis screening: No symptoms or risk factors identified. Assessment: 16:00 General: Appears in no apparent distress. Behavior is cooperative. Pain: Complains of kj2 pain in pelvis and abdomen Pain currently is 6 out of 10 on a pain scale. Neuro: Level of Consciousness is awake, alert, obeys commands, Oriented to person, place, time, situation. Cardiovascular: Patient's skin is warm and dry. Respiratory: Airway is patent Respiratory effort is even, unlabored. GI: Bowel sounds present X 4 quads. Abdomen is tender to palpation in pelvis. 17:00 Reassessment: Patient appears in no apparent distress at this time. Patient and/or kj2 family updated on plan of care and expected duration. Pain level reassessed. Patient is alert, oriented x 3, equal unlabored respirations, skin warm/dry/pink. Vital Signs: 15:45 BP 137 / 87; Pulse 92; Resp 18; Temp 98; Pulse Ox 100% ; Weight 62.6 kg; Height 5 ft. 2 db in. ; 17:00 BP 140 / 77; Pulse 87; Resp 20; Pulse Ox 100% on R/A; kj2 15:45 Body Mass Index 25.24 (62.60 kg, 157.48 cm) db ED Course: 15:02 Patient arrived in ED. sj2 15:17 Raymond Watson MD is Attending Physician. ana m 15:46 Triage completed. db 15:47 Arm band placed on Patient placed in an exam room. db 16:00 Patient has correct armband on for positive identification. Bed in low position. Call kj2 light in reach. Provided Education on: call light. 16:01 Alma Rosa Tyson, RN is Primary Nurse. kj2 16:04 Initial lab(s) drawn, by labor contract analyst, sent to lab. Inserted saline lock: 20 gauge in left ts3 antecubital area, using aseptic technique. Blood collected. Flushed with 10 mL NS. 16:21 Urine collected: clean catch specimen, sent to lab. ts3 16:56 Abdomen In Process Unspecified. EDMS 17:17 Stephany August MD is Referral Physician. ana m 17:27 No provider procedures requiring assistance completed. kj2 17:48 IV discontinued, intact, bleeding controlled, No redness/swelling at site. Pressure kj2 dressing applied. Administered Medications: 16:19 Drug: Famotidine IVP 20 mg IVP once; dilute with 10 mL 0.9% NaCl; give over 2 minutes kj2 Route: IVP; Site: left antecubital; 17:28 Follow up: Response: No adverse reaction kj2 16:19 Not Given (Patient Refused): morphineor iv 4 mg IVP once over 4 mins kj2 16:19 Drug: NS 0.9% IV 1000 ml IV at 1 bolus Per protocol; to be given as a bolus over 60 kj2 minutes Route: IV; Rate: 1 bolus; Site: left antecubital; 17:28 Follow up: IV Status: Completed infusion; IV Intake: 1000ml kj2 17:02 Not Given (Patient Refused): rocephin1 grams IV at per protocol once; Given slow IV kj2 push per pharmacy instructions 17:02 Drug: Phenazopyridine PO 200 mg PO once Route: PO; kj2 17:28 Follow up: Response: No adverse reaction kj2 17:03 Not Given (Patient Refused): ondansetron 4 mg IVP once; over 2 minutes kj2 17:47 Drug: Ciprofloxacin PO 500 mg PO once Route: PO; kj2 17:47 Follow up: Response: Medication administered at discharge. kj2 17:47 Drug: Cefdinir PO 300 mg PO once Route: PO; kj2 17:48 Follow up: Response: Medication administered at discharge. kj2 Medication: 17:26 VIS not applicable for this client. kj2 Intake: 17:28 IV: 1000ml; Total: 1000ml. kj2 Outcome: 17:17 Discharge ordered by . ana m 17:48 Discharged to home ambulatory, kj2 17:48 Condition: stable 17:48 Discharge instructions given to patient, Instructed on discharge instructions, follow up and referral plans. Demonstrated understanding of instructions, follow-up care, medications, Prescriptions given X 4, 17:49 Patient left the ED. kj2 Signatures: Dispatcher [employer] Raymond Veliz MD MD cha Benton, Danielle, RN RN db Jordan, Krystal, RN RN kj2 Verónica Torres2 Christy Aly 3
--- NOTE | 2025-03-23 17:19 | EDPHYS ---
Physician Documentation [facility] Name: Alaina Hernandez Age: 69 yrs Sex: Female : 1955 Arrival Date: 03/23/2025 Time: 14:58 Bed 16 Private MD: ED Physician Raymond Watson HPI: 03/23 17:12 This 69 yrs old Female presents to ER via Ambulatory with complaints of ana m Abdominal Pain, Urinary Problem. 17:12 The patient presents with urinary symptoms, dysuria, frequency, hematuria. Onset: The ana m symptoms/episode began/occurred 2 day(s) ago. Modifying factors: The symptoms are alleviated by nothing, the symptoms are aggravated by pressure, urinating. Associated signs and symptoms: The patient has no apparent associated signs or symptoms. Severity of symptoms: At their worst the symptoms were moderate, in the emergency department the symptoms are unchanged. The patient is not sexually active. The patient has not experienced similar symptoms in the past. Historical: - Allergies: 15:46 Aspirin; db 15:46 Iodine; db 15:46 SHELLFISH; db - PMHx: 15:46 GERD; prolapsed uterus; db - PSHx: 15:46 Cholecystectomy; hysterectomy; db - Immunization history:: Adult Immunizations unknown. - Infectious Disease History:: Denies. - Social history:: Smoking status: Patient denies any tobacco usage or history of. - Family history:: not pertinent. ROS: 17:12 Constitutional: Negative for fever, chills, and weight loss, Eyes: Negative for injury, ana m pain, redness, and discharge, ENT: Negative for injury, pain, and discharge, Neck: Negative for injury, pain, and swelling, Cardiovascular: Negative for chest pain, palpitations, and edema, Respiratory: Negative for shortness of breath, cough, wheezing, and pleuritic chest pain, Back: Negative for injury and pain, MS/Extremity: Negative for injury and deformity, Skin: Negative for injury, rash, and discoloration, Neuro: Negative for headache, weakness, numbness, tingling, and seizure, Psych: Negative for depression, anxiety, suicide ideation, homicidal ideation, and hallucinations, Allergy/Immunology: Negative for hives, rash, and allergies, Endocrine: Negative for neck swelling, polydipsia, polyuria, polyphagia, and marked weight changes, Hematologic/Lymphatic: Negative for swollen nodes, abnormal bleeding, and unusual bruising, 17:12 Abdomen/GI: Positive for abdominal pain, abdominal cramps, 17:12 : Positive for urinary symptoms, urinary frequency, small amounts, burning with urination, difficulty urinating, Exam: 17:12 Constitutional: This is a well developed, well nourished patient who is awake, alert, ana m and in no acute distress. Head/Face: Normocephalic, atraumatic. Eyes: Pupils equal round and reactive to light, extra-ocular motions intact. Lids and lashes normal. Conjunctiva and sclera are non-icteric and not injected. Cornea within normal limits. Periorbital areas with no swelling, redness, or edema. ENT: Nares patent. No nasal discharge, no septal abnormalities noted. Tympanic membranes are normal and external auditory canals are clear. Oropharynx with no redness, swelling, or masses, exudates, or evidence of obstruction, uvula midline. Mucous membranes moist. Neck: Trachea midline, no thyromegaly or masses palpated, and no cervical lymphadenopathy. Supple, full range of motion without nuchal rigidity, or vertebral point tenderness. No Meningismus. Chest/axilla: Normal chest wall appearance and motion. Nontender with no deformity. No lesions are appreciated. Cardiovascular: Regular rate and rhythm with a normal S1 and S2. No gallops, murmurs, or rubs. Normal PMI, no JVD. No pulse deficits. Respiratory: Lungs have equal breath sounds bilaterally, clear to auscultation and percussion. No rales, rhonchi or wheezes noted. No increased work of breathing, no retractions or nasal flaring. Back: No spinal tenderness. No costovertebral tenderness. Full range of motion. Skin: Warm, dry with normal turgor. Normal color with no rashes, no lesions, and no evidence of cellulitis. MS/ Extremity: Pulses equal, no cyanosis. Neurovascular intact. Full, normal range of motion., bilateral aka Neuro: Awake and alert, GCS 15, oriented to person, place, time, and situation. Cranial nerves II-XII grossly intact. Motor strength 5/5 in all extremities. Sensory grossly intact. Cerebellar exam normal. Normal gait. Psych: Awake, alert, with orientation to person, place and time. Behavior, mood, and affect are within normal limits. 17:12 Abdomen/GI: Inspection: abdomen appears normal, Bowel sounds: normal, Palpation: mild abdominal tenderness, in the suprapubic area, right lower quadrant and left lower quadrant, Liver: no appreciated palpable abnormalities, Hernia: not appreciated, Vital Signs: 15:45 BP 137 / 87; Pulse 92; Resp 18; Temp 98; Pulse Ox 100% ; Weight 62.6 kg; Height 5 ft. 2 db in. ; 17:00 BP 140 / 77; Pulse 87; Resp 20; Pulse Ox 100% on R/A; kj2 15:45 Body Mass Index 25.24 (62.60 kg, 157.48 cm) db MDM: 15:17 Medical Screening Exam initiated ana m 17:15 Differential diagnosis: kidney stone, nonspecific abdominal pain, urinary tract ana m infection. Data reviewed: vital signs, nurses notes, lab test result(s), radiologic studies, CT scan. Consideration of Admission/Observation Escalation of care including admission/observation considered. I considered the following discharge prescriptions or medication management in the emergency department Medications were administered in the Emergency Department. See MAR. Independent interpretation of the following test(s) in the Emergency Department CT Scan: My interpretation is ct ab/pel without. Test considered but Not performed: Ultrasound no abd usg. Historians other than the Patient: ptb well informed. Care significantly affected by the following chronic conditions: gerd, prolapses uterus. Counseling: I had a detailed discussion with the patient and/or guardian regarding lab results, radiology results, the need for outpatient follow up, for definitive care, an service worker helper, an OB/Gyne specialist. 03/23 15:19 Order name: CBC with Diff; Complete Time: 16:46 [facility] 03/23 15:19 Order name: CMP; Complete Time: 16:57 [facility] 03/23 15:19 Order name: Lipase; Complete Time: 16:57 [facility] 03/23 15:19 Order name: UA Rfx Galdino Cult if indicated; Complete Time: 16:46 [facility] 03/23 16:46 Order name: Abdomen ; Complete Time: 17:14 [facility] 03/23 15:19 Order name: IV Saline Lock; Complete Time: 16:04 [facility] 03/23 15:19 Order name: Labs collected and sent; Complete Time: 16:04 [facility] Administered Medications: 16:19 Drug: Famotidine IVP 20 mg IVP once; dilute with 10 mL 0.9% NaCl; give over 2 minutes kj2 Route: IVP; Site: left antecubital; 17:28 Follow up: Response: No adverse reaction kj2 16:19 Not Given (Patient Refused): morphineor iv 4 mg IVP once over 4 mins kj2 16:19 Drug: NS 0.9% IV 1000 ml IV at 1 bolus Per protocol; to be given as a bolus over 60 kj2 minutes Route: IV; Rate: 1 bolus; Site: left antecubital; 17:28 Follow up: IV Status: Completed infusion; IV Intake: 1000ml kj2 17:02 Not Given (Patient Refused): rocephin1 grams IV at per protocol once; Given slow IV kj2 push per pharmacy instructions 17:02 Drug: Phenazopyridine PO 200 mg PO once Route: PO; kj2 17:28 Follow up: Response: No adverse reaction kj2 17:03 Not Given (Patient Refused): ondansetron 4 mg IVP once; over 2 minutes kj2 17:47 Drug: Ciprofloxacin PO 500 mg PO once Route: PO; kj2 17:47 Follow up: Response: Medication administered at discharge. kj2 17:47 Drug: Cefdinir PO 300 mg PO once Route: PO; kj2 17:48 Follow up: Response: Medication administered at discharge. kj2 Disposition Summary: 03/23/25 17:17 Discharge Ordered Notes: Location: Home ana m Problem: new ana m Symptoms: have improved ana m Condition: Stable ana m Diagnosis - Dysuria ana m - UTI/ Urinary tract infection, site not specified ana m - Lower abdominal pain, unspecified ana m Followup: ana m - With: Private Physician - When: 2 - 3 days - Reason: Recheck today's complaints, Continuance of care, Re-evaluation by your physician Followup: ana m - With: Stephany August MD - When: 2 - 3 days - Reason: Recheck today's complaints, Re-evaluation by your physician Discharge Instructions: - Discharge Summary Sheet ana m - Dysuria ana m - Urinary Tract Infection, Adult ana m - Urinary Tract Infection, Adult, [id number] ana m - Abdominal Pain, Adult, [id number] ana m Forms: - Medication Reconciliation Form ana m - Antibiotic Education ana m - Prescription Opioid Use ana m - Patient Portal Instructions ana m - Leadership Thank You Letter ana m Prescriptions: - cefdinir 300 mg Oral capsule - take 1 capsule ORAL route 2 times per day for 3 days; 6 capsule; Refills: 0, [facility] Product Selection Permitted - Cipro 250 mg Oral tablet - take 1 tablet ORAL route every 12 hours; 14 tablet; Refills: 0, Product [facility] Selection Permitted - Pyridium 200 mg Oral Tablet - take 1 tablet ORAL route every 8 hours for 3 days; 9 tablet; Refills: 0, [facility] Product Selection Permitted - Valium 2 mg Oral Tablet - take 1 tablet ORAL route every 8 hours As needed; 20 tablet; Refills: 0, [facility] Product Selection Permitted Signatures: Dispatcher [employer] EDRaymond Galeana MD MD cha Benton, Danielle, RN RN db Alma Rosa Tyson RN RN kj2 Corrections: (The following items were deleted from the chart) 16:46 15:20 Abdomen Pelvis W [id number] ordered. [facility]
[2025-03-23] MEDS ORDERED: CEFDINIR 300 MG CAP PO ONE (17:37)
[2025-03-23] MEDS ORDERED: CIPROFLOXACIN HCL 500 MG TAB ONE (17:37)
[2025-03-23 18:36] VITALS: O2SAT 100
[2025-03-23 18:38] VITALS: BP 137/87; TEMP 98
== END 2025-03-23 17:49 | disposition home or self-care (01) ==
LOC: ER 14:58
DX: N39.0 Urinary tract infection, site not specified (principal); R10.30 Lower abdominal pain, unspecified; R10.32 Left lower quadrant pain; R10.31 Right lower quadrant pain
CPT/HCPCS: 96361; 85025; 81001; 36415; 83690; 80053; 74176; 96374; 99284; J7030; J0696; J2405